=== PATIENT | female | born 2000 | race Caucasian/White ===

== ENCOUNTER 2021-08-18 21:16 | Emergency (ER) | payer BC, MEDICAID, SELFPAY ==
--- NOTE | ~2021-08-18 | US_ITS ---
EXAMINATION: OBSTETRIC ULTRASOUND - FIRST TRIMESTER CLINICAL INFORMATION: Lower pelvic pain. COMPARISON: None TECHNIQUE: Transabdominal imaging of the uterus was performed utilizing gurrola scale and color doppler technique, with m-mode imaging. FINDINGS: Single live intrauterine fetus with cardiac activity detected at 181bpm. [place]-rump length 4.43 cm corresponding to gestational age of 11 weeks, 2 days. movement is present. Amniotic fluid within normal limits, with chorioamnionic separation evident, normal at this stage of . Posterior placenta. There is a 2.3 x 1.7 x 1.1 cm avascular hypodensity within the inferior placenta suggestive of a placental mcginnis. No perigestational hemorrhage. Cervix is closed. Ovaries are normal. Trace pelvic free fluid is within normal limits. US/US OB limited IMPRESSION: * Single live intrauterine fetus with estimated gestational age by ultrasound of 11 weeks, 2 days, for an estimated date of delivery 03/08/2022. * There is a 2.3 cm placental mcginnis within the inferior placenta. These are nonspecific, not necessarily of any clinical significance, however wasn't seen during the first trimester, they can be associated with increased placental thickness and/or placental insufficiency.
[2021-08-18 23:30] VITALS: PULSE 107; RESP 18; TEMP 38.1; O2SAT 99; BMI 37.8
[2021-08-19 02:26] VITALS: BP 112/68; PULSE 93; RESP 12; TEMP 37.3; O2SAT 100
--- NOTE | 2021-08-19 02:46 | ED.GENADULT ---
HPI - General Adult General Chief complaint: General Medical Stated complaint: Fever Time Seen by Provider: 08/19/21 02:31 Source: patient and other Mode of arrival: ambulatory History of Present Illness HPI narrative: 21-year-old female with history of asthma, currently at approximately 11 weeks and denies any vaginal bleeding but is having some lower pelvic/suprapubic discomfort but primarily concerned with ongoing nasal congestion and cough with fever over the past 2 weeks. She describes some nausea that she has attributed to her state. Related Data Previous Rx's Medication Instructions Recorded ondansetron 4 mg disintegrating 4 mg PO Q6H PRN #10 tab 08/19/21 tablet Allergies Allergy/AdvReac Type Severity Reaction Status Date / Time No Known Allergies Allergy Verified 08/19/21 02:32 Review of Systems Review of Systems: Pertinent positives and negatives as stated in HPI and 10 point review of systems is otherwise negative. PMFSH Past Medical History Source: nursing notes reviewed Social History Social History Advance Directives: No Patient : Yes Physical Exam ED Vital Signs: Vital Signs - 24 hr 08/18/21 23:30 08/19/21 02:26 08/19/21 04:07 Temperature 100.5 F H 99.1 F 98.9 F Pulse Rate 107 H 93 91 Respiratory Rate 18 12 12 Blood Pressure 112/68 109/64 Pulse Oximetry 99 100 100 BMI result Body Mass Index 37.8 VITAL SIGNS: Reviewed. GENERAL: Well developed, well nourished, in no acute distress. HEAD: Normocephalic/atraumatic EYES: PERRLA, EOMI EARS: Ext canals without abnormality, TMs non-bulging and non-erythematous NOSE: Bilateral congestion with boggy turbinates, tenderness to palpation over maxillary and frontal sinuses OROPHARYNX: no oral lesions noted, posterior pharynx clear and non-erythematous without noted tonsillar enlargement/erythema/exudates NECK: Supple, no adenopathy LUNGS: Normal breath sounds. No adventitious sounds or accessory muscle use. SpO2<99> CARDIOVASCULAR: Regular rate and rhythm without noted murmurs ABDOMEN: Soft, tenderness noted in the suprapubic area without rebound, non-distended with bowel sounds. MUSCULOSKELETAL: No tenderness, deformities, or effusions noted on gross inspection. EXTREMITIES: No cyanosis, clubbing or edema. SKIN: Inspection of the skin reveals no rashes NEUROLOGIC: Alert and oriented x 4. Strength and sensation to light touch were grossly intact x 4. Course Course Course Narrative: 21-year-old female with history and clinical presentation most consistent with likely bacterial sinusitis given the duration of patient's symptoms, but will rule out UTI and obtain ultrasound to ascertain IUP. No concern for gallbladder appendix etiologies. On review of all investigations patient is influenza positive and otherwise dehydrated, patient resuscitated with IV fluids and on re-evaluation states feeling much better. Ob ultrasound shows IUP. Patient discharged home in stable condition Medical Decision Making Lab Data Result diagrams: 08/19/21 03:19 08/19/21 03:19 Labs: Lab Results 08/19/21 08/19/21 08/19/21 Range/Units 02:52 02:52 02:52 WBC (4.8-10.8) X10*3/uL RBC (4.20-5.50) X10*6/uL Hgb (12.0-16.0) g/dl Hct (37.0-47.0) % MCV (80.0-98.0) fL MCH (27.0-33.0) pg MCHC (31.0-35.0) g/dl RDW (11.0-16.0) % Plt Count (160-400) X10*3/uL MPV (9.4-12.3) fL Immature Gran % (Auto) (0.0-0.4) % Neut % (Auto) (45-73) % Lymph % (Auto) (20-40) % Price % (Auto) (2-11) % Eos % (Auto) (0-4) % Baso % (Auto) (0-2) % Lymph # (Auto) (1.2-4.9) X10*3/uL Price # (Auto) (0.1-1.2) X10*3/uL Eos # (Auto) (0.0-0.4) X10*3/uL Baso # (Auto) (0.0-0.2) X10*3/uL Abs Immat Gran (auto) (0.00-0.03) X10*3/uL Absolute Neuts (auto) (2.0-8.3) x10*3/uL Absolute Nucleated RBC (0.0-0.012) X10*3/uL Nucleated RBC % (auto) (0.0-0.2) /100WBC Sodium (135-145) mmol/L Potassium (3.3-5.1) mmol/L Chloride (96-108) mmol/L Carbon Dioxide (22-29) mmol/L Anion Gap (12-20) BUN (9-16) mg/dL Creatinine (0.5-1.4) mg/dL Estim Creat Clear Calc Estimated GFR Random Glucose (60-115) mg/dL Calcium (8.4-10.2) mg/dL Total Bilirubin (0.0-1.0) mg/dL AST (5-31) U/L ALT (0-31) U/L Alkaline Phosphatase (39-117) U/L Total Protein (6.5-8.0) g/dL Albumin (3.5-5.0) g/dL Beta HCG, Quant mIU/mL Urine Color YELLOW Urine Appearance CLEAR Urine pH 6.0 (5.0-8.0) Ur Specific [place] 1.015 (1.005-1.025) Urine Protein NEG (NEG-TRACE) MG/DL Urine Glucose (UA) NEG (NEG) MG/DL Urine Ketones 40 (NEG) MG/DL Urine Blood NEG (NEG) Urine Nitrite NEG (NEG) Ur Leukocyte Esterase NEG (NEG) Urine Test POSITIVE H (NEGATIVE) Influenza Type A (PCR) POSITIVE A (Negative) Influenza Type B (PCR) NEGATIVE (Negative) RSV RNA Qual (PCR) NEGATIVE (Negative) SARS-CoV-2 RNA (RT-PCR) NEGATIVE (Negative) 08/19/21 08/19/21 Range/Units 03:19 03:19 WBC 5.4 (4.8-10.8) X10*3/uL RBC 3.81 L (4.20-5.50) X10*6/uL Hgb 11.0 L (12.0-16.0) g/dl Hct 32.5 L (37.0-47.0) % MCV 85.3 (80.0-98.0) fL MCH 28.9 (27.0-33.0) pg MCHC 33.8 (31.0-35.0) g/dl RDW 12.4 (11.0-16.0) % Plt Count 161 (160-400) X10*3/uL MPV 11.0 (9.4-12.3) fL Immature Gran % (Auto) 0.2 (0.0-0.4) % Neut % (Auto) 61.8 (45-73) % Lymph % (Auto) 25.9 (20-40) % Price % (Auto) 11.9 H (2-11) % Eos % (Auto) 0.0 (0-4) % Baso % (Auto) 0.2 (0-2) % Lymph # (Auto) 1.4 (1.2-4.9) X10*3/uL Price # (Auto) 0.6 (0.1-1.2) X10*3/uL Eos # (Auto) 0.0 (0.0-0.4) X10*3/uL Baso # (Auto) 0.0 (0.0-0.2) X10*3/uL Abs Immat Gran (auto) 0.01 (0.00-0.03) X10*3/uL Absolute Neuts (auto) 3.3 (2.0-8.3) x10*3/uL Absolute Nucleated RBC 0.000 (0.0-0.012) X10*3/uL Nucleated RBC % (auto) 0.0 (0.0-0.2) /100WBC Sodium 130 L (135-145) mmol/L Potassium 3.6 (3.3-5.1) mmol/L Chloride 102 (96-108) mmol/L Carbon Dioxide 20 L (22-29) mmol/L Anion Gap 12 (12-20) BUN 6 L (9-16) mg/dL Creatinine 0.63 (0.5-1.4) mg/dL Estim Creat Clear Calc 126.7 Estimated GFR > 60 Random Glucose 86 (60-115) mg/dL Calcium 9.0 (8.4-10.2) mg/dL Total Bilirubin 0.2 (0.0-1.0) mg/dL AST 62 H (5-31) U/L ALT 73 H (0-31) U/L Alkaline Phosphatase 43 (39-117) U/L Total Protein 5.9 L (6.5-8.0) g/dL Albumin 3.7 (3.5-5.0) g/dL Beta HCG, Quant 879017 mIU/mL Urine Color Urine Appearance Urine pH (5.0-8.0) Ur Specific [place] (1.005-1.025) Urine Protein (NEG-TRACE) MG/DL Urine Glucose (UA) (NEG) MG/DL Urine Ketones (NEG) MG/DL Urine Blood (NEG) Urine Nitrite (NEG) Ur Leukocyte Esterase (NEG) Urine Test (NEGATIVE) Influenza Type A (PCR) (Negative) Influenza Type B (PCR) (Negative) RSV RNA Qual (PCR) (Negative) SARS-CoV-2 RNA (RT-PCR) (Negative) Discharge Plan Discharge Clinical Impression: Influenza A H1N1 infection, Dehydration, Patient Disposition: Home, Self-Care Instructions: Dehydration (ED), Influenza (ED), at 11 to 14 Weeks (ED) Additional Instructions: 1. Increase fluid hydration, especially with water. Continue with your vitamins. You have been prescribed antinausea medications. 2. Be sure to rest, drink plenty of fluids, and use Tylenol for body aches and temperatures greater than 100.4. 3. Follow-up with your primary care provider Saturday. Return to the ER for worsening symptoms. Prescriptions: New ondansetron 4 mg tablet,disintegrating 4 mg PO Q6H PRN (Reason: nausea and vomiting) Qty: 10 0RF Referrals: Liz Lee, [facility], [employer], [employer]ICE-[facility] [Primary Care Provider] - 2 days
[2021-08-19 03:03] LABS: Appearance Urine CLEAR; Color Urine YELLOW; Glucose Urine UA NEG (NEG); Leukocyte Esterase Urine NEG (NEG); Nitrite Urine NEG (NEG); Specific Gravity - Urine 1.015 (1.005-1.025); Urine Blood NEG (NEG); Urine Ketones 40 MG/DL (NEG); Urine Protein NEG (NEG-TRACE)
[2021-08-19 03:04] LABS: UPreg QC Valid YES; Urine Pregnancy POSITIVE (NEGATIVE)
[2021-08-19] MEDS: 0.9 % Sodium Chloride 1,000 ML 999 ML IV (03:20)
[2021-08-19 03:25] LABS: MANUAL DIFF FLAG NO
[2021-08-19] MEDS: diphenhydrAMINE HCL 25 MG TABLET PO (03:26)
[2021-08-19 03:28] LABS: Basophils Percent Auto 0.2 % (0-2); Hematocrit 32.5 % (37.0-47.0); Imm Gran Abs Auto 0.01 X10*3/uL (0.00-0.03); Imm Gran Pct Auto 0.2 % (0.0-0.4); Lymphocytes Absolute Auto 1.4 X10*3/uL (1.2-4.9); Lymphocytes Percent Auto 25.9 % (20-40); Mean Corpuscular HGB Conc 33.8 g/dl (31.0-35.0); Mean Corpuscular Hemoglobin 28.9 pg (27.0-33.0); Mean Corpuscular Volume 85.3 fL (80.0-98.0); Monocytes Absolute Auto 0.6 X10*3/uL (0.1-1.2); Monocytes Percent Auto 11.9 % (2-11); Neutrophils Absolute Auto 3.3 x10*3/uL (2.0-8.3); Neutrophils Percent Auto 61.8 % (45-73); Platelet Count 161 X10*3/uL (160-400); Red Blood Count 3.81 X10*6/uL (4.20-5.50); Red Cell Distribution Width 12.4 % (11.0-16.0); White Blood Count 5.4 X10*3/uL (4.8-10.8)
[2021-08-19 03:35] LABS: Influenza A PCR POSITIVE (Negative); Influenza B PCR NEGATIVE (Negative); Resp Syncy Virus RNA Qual PCR NEGATIVE (Negative); SARS COV2 PCR INHOUSE NEGATIVE (Negative)
[2021-08-19 03:51] LABS: Alanine Aminotransferase 73 U/L (0-31); Albumin Level 3.7 g/dL (3.5-5.0); Alkaline Phosphatase 43 U/L (39-117); Anion Gap 12 (12-20); Aspartate Amino Transferase 62 U/L (5-31); Bilirubin Total 0.2 mg/dL (0.0-1.0); Blood Urea Nitrogen 6 mg/dL (9-16); Carbon Dioxide 20 mmol/L (22-29); Chloride 102 mmol/L (96-108); Creatinine Clr Calc Pharmacy 126.7; Estimated Glomerular Filt Rate > 60; Glucose Random 86 mg/dL (60-115); Potassium 3.6 mmol/L (3.3-5.1); Sodium 130 mmol/L (135-145); Total Protein 5.9 g/dL (6.5-8.0)
[2021-08-19 04:07] VITALS: BP 109/64; PULSE 91; RESP 12; TEMP 37.2; O2SAT 100
--- NOTE | 2021-08-19 05:22 | PC.NURSE ---
[facility] care [facility] She arrived for evaluation of upper respiratory symptoms - cough, scratchy throat, nasal congestion, fatigue. She is currently nad has no complaints related to the - no bleeding, no abdominal pain, no discharge. She has been resting quietly in her room with her boyfriend at the bedside. IV access and labs were obtained and IVF's have infused. The pt also went to U/S via stretcher and returned without incident. At this time she has been discharged. She verbalized an understanding of all DC orders and she ambulated out of the ED independently and with steady gait.
== END 2021-08-19 05:21 | disposition home or self-care (01) ==
PROVIDERS: Emergency Provider Student in an Organized Health Care Education/Training Program; PCP Registered Nurse
DX: O98.511 Other viral diseases complicating pregnancy, first trimester (principal); B33.8 Other specified viral diseases; J11.1 Influenza due to unidentified influenza virus with other respiratory manifestations; O26.891 Other specified pregnancy related conditions, first trimester; E86.0 Dehydration; R10.30 Lower abdominal pain, unspecified; R50.9 Fever, unspecified; Z3A.11 11 weeks gestation of pregnancy; Z20.822 Contact with and (suspected) exposure to COVID-19
CPT/HCPCS: 0241U; 36415; 76815; 80053; 81003; 81025; 84702; 85025; 96360; 99283; 99284; Q0163

== ENCOUNTER 2021-08-24 09:45 | Outpatient (REF) | payer BC, MEDICAID, SELFPAY ==
[2021-08-24 17:05] LABS: CT PCR NOT DETECTED (Not Detect.); NG PCR NOT DETECTED (Not Detect.)
[2021-08-25 10:58] LABS: BV Int Neg Control Negative (Negative); BV Int Pos Control Positive (Positive)
== END 2021-08-24 09:46 | disposition home or self-care (01) ==
LOC: HO.LAB 09:45
PROVIDERS: PCP Registered Nurse; Visit Provider Advanced Practice Midwife
DX: O26.891 Other specified pregnancy related conditions, first trimester (principal); N89.8 Other specified noninflammatory disorders of vagina
CPT/HCPCS: 81025; 87480; 87491; 87510; 87591; 87660

== ENCOUNTER 2021-09-08 14:21 | Outpatient (REF) | payer BC, MEDICAID, SELFPAY ==
[2021-09-09 12:09] LABS: CT PCR NOT DETECTED (Not Detect.); NG PCR NOT DETECTED (Not Detect.)
[2021-09-09 14:44] LABS: BV Int Neg Control Negative (Negative); BV Int Pos Control Positive (Positive)
== END 2021-09-08 14:22 | disposition home or self-care (01) ==
LOC: HO.LAB 14:21
PROVIDERS: PCP Registered Nurse; Visit Provider Advanced Practice Midwife
DX: O26.892 Other specified pregnancy related conditions, second trimester (principal); R10.9 Unspecified abdominal pain; Z20.2 Contact with and (suspected) exposure to infections with a predominantly sexual mode of transmission; Z3A.14 14 weeks gestation of pregnancy
CPT/HCPCS: 87086; 87147; 87480; 87491; 87510; 87591; 87660; 99212

== ENCOUNTER 2021-09-08 16:11 | Outpatient (REF) | payer BC, MEDICAID, SELFPAY ==
--- NOTE | ~2021-09-08 | US_ITS ---
EXAMINATION: US OBSTETRICAL FOLLOW UP WITH BIOPHYSICAL PROFILE CLINICAL INFORMATION: Supervision of normal first COMPARISON: Ultrasound OB 09-06 TECHNIQUE: Real time transabdominal imaging with color and M-mode Doppler. POSITION: Cephalic PLACENTA: Posterior. Previously visualized placental mcginnis is not seen at this time. AMNIOTIC FLUID INDEX: Adequate. Single live intrauterine fetus with a heart rate of 160 bpm. There is normal motion There are small anechoic cyst in the right ovary measuring 1.1 x 1.0 x 1.1 cm. The left ovary appears unremarkable. US/US OB follow up IMPRESSION: 1. Single intrauterine gestation in cephalic position with posterior placenta. 2 ÁNGEL: Adequate amniotic fluid seen. 3. Normal motion.
== END 2021-09-08 16:12 | disposition home or self-care (01) ==
LOC: HO.US 16:11
PROVIDERS: Visit Provider Advanced Practice Midwife
DX: O26.899 Other specified pregnancy related conditions, unspecified trimester (principal); R10.2 Pelvic and perineal pain
CPT/HCPCS: 76816

== ENCOUNTER → 2021-09-13 14:07 | Outpatient (BNVA) | payer BC, MEDICAID, SELFPAY | PROVIDERS: PCP Registered Nurse; Visit Provider Advanced Practice Midwife | DX: Z13.89 Encounter for screening for other disorder (principal) | CPT/HCPCS: 99212 ==

== ENCOUNTER 2021-09-23 08:43 | Outpatient (REF) | payer BC, MEDICAID, SELFPAY ==
[2021-09-23 10:42] LABS: Hematocrit 27.7 % (37.0-47.0); Hemoglobin 9.2 g/dl (12.0-16.0); Mean Corpuscular HGB Conc 33.2 g/dl (31.0-35.0); Mean Corpuscular Hemoglobin 29.1 pg (27.0-33.0); Mean Corpuscular Volume 87.7 fL (80.0-98.0); Mean Platelet Volume 11.3 fL (9.4-12.3); Platelet Count 210 X10*3/uL (160-400); Red Blood Count 3.16 X10*6/uL (4.20-5.50); Red Cell Distribution Width 14.1 % (11.0-16.0)
[2021-09-23 11:18] LABS: Glucose 1 Hour PP 50gm Dose 80 mg/dL (60-140)
[2021-09-23 11:48] LABS: Amphetamine Screen Urine Not Detected (Not Detect); Barbiturates, Urine Not Detected (Not Detect); Benzodiazepines Screen Urine Not Detected (Not Detect); Cannabinoid Screen Urine Not Detected (Not Detect); Cocaine Screen Urine Not Detected (Not Detect); Fentanyl, urine Not Detected (Not Detect); Opiate Screen Urine Not Detected (Not Detect); Phencyclidine Screen Urine Not Detected (Not Detect)
[2021-09-25 03:51] LABS: HBsAGNum1 0.37 S/CO (0.00-0.99); HIV AB/AG Nonreactive (Nonreactive); HIV Num 1 0.06 S/CO (0.00-0.99); Hepatitis B Surface Antigen Negative (Negative); ~HepC Num1 0.05 S/CO (0.00-0.79); ~Hepatitis C Antibody Nonreactive (Nonreactive)
[2021-09-25 06:04] LABS: Syphilis Screen Nonreactive (Nonreactive)
[2021-09-25 18:56] LABS: Rubella IgG Antibody <0.90 Index
[2021-09-25 22:22] LABS: Varicella IgG Antibody <135.00 index
== END 2021-09-23 08:44 | disposition home or self-care (01) ==
LOC: HO.LAB 08:43
PROVIDERS: PCP Registered Nurse; Visit Provider Advanced Practice Midwife
DX: Z34.90 Encounter for supervision of normal pregnancy, unspecified, unspecified trimester (principal); Z83.3 Family history of diabetes mellitus
CPT/HCPCS: 80307; 85027; 86762; 86780; 86787; 86803; 86850; 86900; 86901; 87340; 87389

== ENCOUNTER 2021-10-02 10:47 | Outpatient (REF) | payer BC, MEDICAID, SELFPAY ==
[2021-10-02 12:24] LABS: Appearance Urine CLEAR; Color Urine YELLOW; Glucose Urine UA NEG (NEG); Leukocyte Esterase Urine NEG (NEG); Nitrite Urine NEG (NEG); Specific Gravity - Urine 1.025 (1.005-1.025); Urine Blood NEG (NEG); Urine Ketones NEG (NEG); Urine Protein NEG (NEG-TRACE)
[2021-10-03 13:17] LABS: BV Int Neg Control Negative (Negative); BV Int Pos Control Positive (Positive)
== END 2021-10-02 10:48 | disposition home or self-care (01) ==
LOC: HO.LAB 10:47
PROVIDERS: Advanced Practice Midwife; PCP Registered Nurse; Visit Provider Advanced Practice Midwife
DX: R30.0 Dysuria (principal); B37.3 Candidiasis of vulva and vagina
CPT/HCPCS: 81003; 87480; 87510; 87660; 99212

== ENCOUNTER 2021-10-06 09:10 | Outpatient (REF) | payer BC, MEDICAID, SELFPAY ==
--- NOTE | ~2021-10-06 | US_ITS ---
EXAMINATION: US OBSTETRICAL CLINICAL INFORMATION: 21-year-old at 18.0 weeks of gestation Screening for anomaly COMPARISON: 09/08/2021 TECHNIQUE: Real-time transabdominal ultrasound was performed using C1-5 megahertz transducer. FINDINGS: A single, active, fetus is seen in vertex presentation. The placenta is posterior without previa, and the amniotic fluid volume is wnl. MEASUREMENTS: 1. Biparietal Diameter: 4.1 cm; 18.4 wks 2. Occipital Frontal Diameter: 5.1 cm 3. Head Circumference: 14.8 cm; 18.0 wks 4. Abdominal Circumference: 12.8 cm; 18.3 wks 5. Femur Length: 2.7 cm; 18.2 wks 6. Humerus Length: 2.6 cm; 18.2 wks 7. Tibia Length: 2.3 cm; 18.0 wks 8. Ulna Length: 2.4 cm; 18.5 wks 9. Lateral ventricle: 0.7 cm 10. Cerebellum: 1.73 cm; 18.2 wks 11. Cisterna Magna: 0.4 cm 12. Nuchal Fold: 3.3 mm 13. Heart Rate: 139 beats per minute Rt ovary: normal Lt ovary: Unable to visualize, normal adnexa Cervical length 3.7 cm on T/A. GESTATIONAL AGE: 1. Established GA: 18.0 wks 2. GA from [facility]: 18.3 wks ESTIMATED DATE OF DELIVERY: 1. Established NANDO: 03/09/2022 2. NANDO from [facility]: 03/06/2022 ANATOMY: The visualized anatomy includes but not limited to: 1. Cranium: Normal 2. Intracranial anatomy: cavum septum pellucidi, lateral ventricles, choroid plexus, cerebellum, posterior fossa, third and fourth ventricles. 3. face: orbits, lip/palate, profile, nasal bone 4. Heart: four-chamber view of the heart, ventricular septum, foramen ovale, pulmonary vein, left and right outflow tracts, three-vessel view, 3 vessel trachea view, aortic and ductal arches, situs.. 5. Diaphragm: Normal 6. Abdominal wall: Normal 7. Cord Insertion: Normal 8. Spine: Cervical, thoracic, lumbar, sacral. 9. Stomach: Normal size and shape 10. Right Kidney: Normal 11. Left Kidney: Normal 12. 3 vessel cord: Normal 13. Upper extremity: Open hands, fifth digit. 14. Lower extremity: Tibia, fibula, bilateral feet. 15. Bladder: Normal 16. Genitalia: Female, patient not aware US/US OB /maternal detail IMPRESSION: 1. Single, living, intrauterine with appropriate biometry. 2. Normal survey DISCUSSION: I reviewed today's ultrasound findings. We discussed the limitations of ultrasound in diagnosing aneuploidy and other congenital abnormalities. I reviewed the differences between screening test and diagnostic test. Amniocentesis was discussed and declined. She was informed that the baseline incidence of congenital abnormalities is approximately 3-5%. Not all these conditions are diagnosable in utero. RECOMMENDATIONS: Follow-up when necessary. Thank you for allowing me to participate in her care. Total time 20 minutes. The time spent was devoted to counseling the patient about the disease and diagnosis, coordinating care including reviewing her records, pertinent lab data and studies, as well as discussing diagnostic evaluation and workup, plan therapeutic interventions and future disposition of care. This includes any additional research needed to obtain further information in formulating the plan of care of this patient. This note was generated with a voice recognition program. Please excuse any errors which may have been overlooked during my review of this note. Sometimes these errors may affect the content or meaning of a given sentence.
== END 2021-10-06 09:11 | disposition home or self-care (01) ==
LOC: HO.US 09:10
PROVIDERS: Visit Provider Advanced Practice Midwife
DX: Z34.92 Encounter for supervision of normal pregnancy, unspecified, second trimester (principal); Z3A.18 18 weeks gestation of pregnancy
CPT/HCPCS: 76811; 99212

== ENCOUNTER → 2021-11-06 09:05 | Outpatient (BNVA) | payer BC, MEDICAID, SELFPAY | PROVIDERS: PCP Registered Nurse; Visit Provider Advanced Practice Midwife | DX: O99.012 Anemia complicating pregnancy, second trimester (principal); Z3A.22 22 weeks gestation of pregnancy | CPT/HCPCS: 99212 ==

== ENCOUNTER → 2021-12-04 09:04 | Outpatient (BNVA) | payer BC, MEDICAID, SELFPAY | PROVIDERS: PCP Registered Nurse; Visit Provider Advanced Practice Midwife | DX: O99.012 Anemia complicating pregnancy, second trimester (principal); D64.9 Anemia, unspecified; Z3A.26 26 weeks gestation of pregnancy | CPT/HCPCS: 81003; 99212 ==

== ENCOUNTER 2021-12-12 07:46 | Outpatient (REF) | payer BC, MEDICAID, SELFPAY | END 2021-12-12 07:47 | disposition home or self-care (01) | LOC: HO.LAB 07:46 | PROVIDERS: PCP Registered Nurse; Visit Provider Advanced Practice Midwife | DX: Z34.92 Encounter for supervision of normal pregnancy, unspecified, second trimester (principal) | CPT/HCPCS: 87086 ==

== ENCOUNTER 2021-12-16 09:19 | Outpatient (REF) | payer BC, MEDICAID, SELFPAY ==
[2021-12-16 11:14] LABS: Hematocrit 35.1 % (37.0-47.0); Hemoglobin 11.4 g/dl (12.0-16.0); Mean Corpuscular HGB Conc 32.5 g/dl (31.0-35.0); Mean Corpuscular Hemoglobin 29.9 pg (27.0-33.0); Mean Corpuscular Volume 92.1 fL (80.0-98.0); Mean Platelet Volume 11.9 fL (9.4-12.3); Platelet Count 156 X10*3/uL (160-400); Red Blood Count 3.81 X10*6/uL (4.20-5.50); Red Cell Distribution Width 13.1 % (11.0-16.0); White Blood Count 8.8 X10*3/uL (4.8-10.8)
[2021-12-16 11:45] LABS: Glucose 1 Hour PP 50gm Dose 96 mg/dL (60-140)
[2021-12-18 06:10] LABS: Syphilis Screen Nonreactive (Nonreactive)
== END 2021-12-16 09:20 | disposition home or self-care (01) ==
LOC: HO.LAB 09:19
PROVIDERS: PCP Registered Nurse; Visit Provider Advanced Practice Midwife
DX: O99.019 Anemia complicating pregnancy, unspecified trimester (principal); D64.9 Anemia, unspecified
CPT/HCPCS: 36415; 85027; 86780

== ENCOUNTER → 2021-12-20 12:48 | Outpatient (BNVA) | payer BC, MEDICAID, SELFPAY | PROVIDERS: PCP Registered Nurse; Visit Provider Obstetrics & Gynecology | DX: O99.113 Other diseases of the blood and blood-forming organs and certain disorders involving the immune mechanism complicating pregnancy, third trimester (principal); D69.6 Thrombocytopenia, unspecified; Z3A.28 28 weeks gestation of pregnancy | CPT/HCPCS: 99212 ==

== ENCOUNTER 2021-12-25 17:20 | Outpatient (REF) | payer BC, MEDICAID, SELFPAY ==
[2021-12-25 17:32] LABS: MANUAL DIFF FLAG NO
[2021-12-25 17:39] LABS: Basophils Percent Auto 0.4 % (0-2); Eosinophils Absolute Auto 0.1 X10*3/uL (0.0-0.4); Imm Gran Abs Auto 0.07 X10*3/uL (0.00-0.03); Imm Gran Pct Auto 0.7 % (0.0-0.4); Lymphocytes Percent Auto 21.4 % (20-40); Mean Corpuscular HGB Conc 33.3 g/dl (31.0-35.0); Mean Corpuscular Hemoglobin 30.2 pg (27.0-33.0); Mean Corpuscular Volume 90.7 fL (80.0-98.0); Mean Platelet Volume 11.7 fL (9.4-12.3); Monocytes Absolute Auto 0.8 X10*3/uL (0.1-1.2); Monocytes Percent Auto 8.2 % (2-11); Neutrophils Absolute Auto 6.5 x10*3/uL (2.0-8.3); Neutrophils Percent Auto 68.3 % (45-73); Platelet Count 154 X10*3/uL (160-400); Red Blood Count 3.97 X10*6/uL (4.20-5.50); Red Cell Distribution Width 12.8 % (11.0-16.0); White Blood Count 9.6 X10*3/uL (4.8-10.8)
[2021-12-25 17:56] LABS: Alanine Aminotransferase 10 U/L (0-31); Albumin Level 3.6 g/dL (3.5-5.0); Alkaline Phosphatase 123 U/L (39-117); Aspartate Amino Transferase 18 U/L (5-31); Bilirubin Direct < 0.2 mg/dL (0.0-0.5); Bilirubin Total 0.3 mg/dL (0.0-1.0); Estimated Glomerular Filt Rate > 60; Total Protein 6.3 g/dL (6.5-8.0)
== END 2021-12-25 17:21 | disposition home or self-care (01) ==
LOC: HO.LAB 17:20
PROVIDERS: PCP Registered Nurse; Visit Provider Obstetrics & Gynecology
DX: O99.119 Other diseases of the blood and blood-forming organs and certain disorders involving the immune mechanism complicating pregnancy, unspecified trimester (principal); D69.6 Thrombocytopenia, unspecified
CPT/HCPCS: 36415; 80076; 82565; 85025

== ENCOUNTER 2022-01-04 10:58 | Outpatient (REF) | payer BC, MEDICAID, SELFPAY ==
[2022-01-04 13:48] LABS: CT PCR NOT DETECTED (Not Detect.); NG PCR NOT DETECTED (Not Detect.)
[2022-01-05 09:19] LABS: BV Int Neg Control Negative (Negative); BV Int Pos Control Positive (Positive)
== END 2022-01-04 10:59 | disposition home or self-care (01) ==
LOC: HO.LAB 10:58
PROVIDERS: Visit Provider Advanced Practice Midwife
DX: O98.813 Other maternal infectious and parasitic diseases complicating pregnancy, third trimester (principal); B37.3 Candidiasis of vulva and vagina; Z3A.31 31 weeks gestation of pregnancy; Z83.3 Family history of diabetes mellitus
CPT/HCPCS: 87480; 87491; 87510; 87591; 87660; 99212

== ENCOUNTER 2022-01-12 08:25 | Outpatient (REF) | payer BC, MEDICAID, SELFPAY ==
[2022-01-12 09:04] LABS: Hematocrit 34.3 % (37.0-47.0); Hemoglobin 11.6 g/dl (12.0-16.0); Mean Corpuscular HGB Conc 33.8 g/dl (31.0-35.0); Mean Corpuscular Hemoglobin 30.2 pg (27.0-33.0); Mean Corpuscular Volume 89.3 fL (80.0-98.0); Mean Platelet Volume 11.9 fL (9.4-12.3); Platelet Count 141 X10*3/uL (160-400); Red Blood Count 3.84 X10*6/uL (4.20-5.50); Red Cell Distribution Width 12.8 % (11.0-16.0); White Blood Count 8.2 X10*3/uL (4.8-10.8)
== END 2022-01-12 08:26 | disposition home or self-care (01) ==
LOC: HO.LAB 08:25
PROVIDERS: Absent Provider Advanced Practice Midwife; PCP Registered Nurse; Visit Provider Obstetrics & Gynecology
DX: O26.893 Other specified pregnancy related conditions, third trimester (principal); D69.6 Thrombocytopenia, unspecified; Z67.91 Unspecified blood type, Rh negative; O99.113 Other diseases of the blood and blood-forming organs and certain disorders involving the immune mechanism complicating pregnancy, third trimester
CPT/HCPCS: 36415; 85027; 86850

== ENCOUNTER → 2022-01-18 11:46 | Outpatient (BNVA) | payer BC, MEDICAID, SELFPAY | PROVIDERS: PCP Registered Nurse; Visit Provider Advanced Practice Midwife | DX: Z34.93 Encounter for supervision of normal pregnancy, unspecified, third trimester (principal); Z23 Encounter for immunization; Z3A.33 33 weeks gestation of pregnancy | CPT/HCPCS: 90471; 90715; 99212 ==

== ENCOUNTER 2022-01-29 16:21 | Outpatient (REF) | payer BC, MEDICAID, SELFPAY ==
[2022-01-30 13:21] LABS: BV Int Neg Control Negative (Negative); BV Int Pos Control Positive (Positive)
== END 2022-01-29 16:22 | disposition home or self-care (01) ==
LOC: HO.LNP 16:21
PROVIDERS: Visit Provider Advanced Practice Midwife
DX: Z34.93 Encounter for supervision of normal pregnancy, unspecified, third trimester (principal); Z3A.34 34 weeks gestation of pregnancy
CPT/HCPCS: 87480; 87510; 87660; 99212

== ENCOUNTER 2022-07-16 16:17 | Emergency (ER) | payer BC, MEDICAID, SELFPAY ==
--- NOTE | 2022-07-16 16:26 | ED_ITS ---
HPI - Psych General Chief Complaint: ETOH/Substance Use Stated Complaint: crisis etoh Time Seen by Provider: 07/16/22 16:18 Source: patient and EMS Mode of arrival: EMS Limitations: other (patient intoxicated ) History of Present Illness HPI Narrative: This is a 22-year-old female presenting to the emergency department on a Section 12 with EMS and police, patient was found next to a local bridge, stating she was going to jump off the bridge. When I asked her why she tells me she is tired. 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 Today she tells me she had an entire sleeve of nips. Patient tried to show up to child's daycare intoxicated to pick child up. She tells me she is really struggling. Nothing like this has ever happened to her before. Last drink just prior to arrival. She tells me ?im fucked up?. Denies any illicit drug use. Denies homicidal ideation however does endorse suicidal ideation with plan to jump off bridge. Child is currently with patient's mother. Denies medical complaints. She is prescribed antidepressants however not taking. Related Data Allergies Allergy/AdvReac Type Severity Reaction Status Date / Time No Known Allergies Allergy Verified 01/29/22 15:51 Review of Systems Review of Systems: Constitutional : No Weight loss, No Fever, No Chills, No Fatigue, No Malaise ENT/Mouth : No sore throat, No Rhinorrhea Eyes: No Eye Pain, No Swelling, No Redness Cardiovascular : No Chest Pain, No SOB, No Dyspnea on Exertion, No Orthopnea, No Edema, No Palpitations Respiratory : No Cough, No Sputum, No Wheezing Gastrointestinal : No Nausea, No Vomiting, No Diarrhea, No Constipation, No abdominal Pain, No Hematochezia, No Melena Genitourinary : No Dysuria, No Urinary Frequency, No Hematuria, Musculoskeletal : No joint pain, No Myalgias, No Joint Swelling Skin : No Skin Lesions, No rash Neuro : No Weakness, No Numbness, No Dizziness, No Headache Psych : No Anxiety/Panic, No Depression Heme/Lymph: No Bruising, No Bleeding,No Lymphadenopathy Endocrine : No Polyuria, No Polydipsia All other systems reviewed and are negative Yes all other systems are reviewed and are negative [facility] Past Medical History Attestation statement: The following information was validated with the patient. Source: old records reviewed and nursing notes reviewed Medical History Acid reflux Asthma Family History Family History Maternal Grandmother Diabetes Father HTN (hypertension) Mother Anemia H/O blood clots Maternal Grandfather Cancer determined by biopsy of stomach Paternal Grandfather Throat cancer Social History Social History Household Members: Family Housing: Apartment Are you a primary technical healthcare consultant to a significant other at home: No Do you presently have visiting nurse or other home services: No Alcohol intake: former Patient Tobacco Use Status: Never used Tobacco Substance Use Type: Marijuana Agree to transfusion: Yes Advance Directives: No Advance Directives Information Provided: No service: No Current occupational status: employed 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 Oriented X3.? No acute distress.? Patient smells like alcohol. Tearful. Head: Normocephalic, atraumatic, no step-offs or deformities Eyes: Pupils equal, round and reactive to light.? Bilateral conjunctivae injected. ENT: Pharynx normal.? Neck: Normal inspection.? Neck supple.? CVS: Normal heart rate and rhythm.? Pulses normal.? Respiratory: No respiratory distress.? Breath sounds normal.? Abdomen: Soft and nontender.? Skin: Skin warm and dry.? Normal skin color.? Normal skin turgor.? Extremities: No lower extremity edema.? No calf ttp. 5/5 strength to bilateral upper and lower extremities Neuro: Oriented X 3.? No motor deficit.? No sensory deficit. CN 2-12 intact Course Reevaluation(s) Reevaluation #1: CBC appears to be around patient's baseline however slightly hemoconcentrated when compared to patients baseline likely secondary to poor p.o. intake, dehydration and or alcohol abuse. Chemistry with no acute electrolyte abnormalities requiring intervention. Transaminases slightly elevated likely secondary to alcohol use. UA clean without infection. Urine toxicology negative. Ethanol level 273. At this time patient will be placed into observation to allow more time to be evaluated by the behavioral health team. At time observation was started patient common cooperative no acute distress will continue to monitor. She is on a Section 12 at this time. Time: 18:54 Medical Decision Making Medical Decision Making [facility] Narrative: 1626 22-year-old female presents with depression, suicidal ideation with plan. Tried to act on plan earlier today. Arrives on a Section 12 from police. Physical examination patient is eyes bloodshot bilaterally. Patient tearful. Bizarre affect. History and physical examination concerning for depression or psychosis. Unlikely bipolar schizophrenia. Also concern for acute alcohol intoxication. Will rule out polysubstance abuse. Plan at this time medical clearance evaluation by the behavioral health team. Police will file a 51 a. Differential Diagnosis Differential Diagnoses: The differential diagnosis associated with the presentation includes History and physical examination concerning for depression or psychosis. Unlikely bipolar schizophrenia. Also concern for acute alcohol intoxication. Will rule out polysubstance abuse. Admission/Observation Consideration of admission/observation: Escalation of care including admission/observation considered Consult Healthcare Provider Management of the patient was discussed with: Behavioral Health Provider Lab Data [facility] Lab Attestation statement: I reviewed the patient's lab results. 07/16/22 18:19 07/16/22 18:15 Labs: Lab Results 07/16/22 07/16/22 07/16/22 Range/Units 17:07 17:07 17:07 WBC (4.8-10.8) X10*3/uL RBC (4.20-5.50) X10*6/uL Hgb (12.0-16.0) g/dl Hct (37.0-47.0) % MCV (80.0-98.0) fL MCH (27.0-33.0) pg MCHC (31.0-35.0) g/dl RDW (11.0-16.0) % Plt Count (160-400) X10*3/uL MPV (9.4-12.3) fL Immature Gran % (Auto) (0.0-0.4) % Neut % (Auto) (45-73) % Lymph % (Auto) (20-40) % [place] % (Auto) (2-11) % Eos % (Auto) (0-4) % Baso % (Auto) (0-2) % Lymph # (Auto) (1.2-4.9) X10*3/uL [place] # (Auto) (0.1-1.2) X10*3/uL Eos # (Auto) (0.0-0.4) X10*3/uL Baso # (Auto) (0.0-0.2) X10*3/uL Abs Immat Gran (auto) (0.00-0.03) X10*3/uL Absolute Neuts (auto) (2.0-8.3) x10*3/uL Absolute Nucleated RBC (0.0-0.012) X10*3/uL Nucleated RBC % (auto) (0.0-0.2) /100WBC Sodium (135-145) mmol/L Potassium (3.3-5.1) mmol/L Chloride (96-108) mmol/L Carbon Dioxide (22-29) mmol/L Anion Gap (12-20) BUN (9-16) mg/dL Creatinine (0.5-1.4) mg/dL Estim Creat Clear Calc Estimated GFR Random Glucose (60-115) mg/dL Calcium (8.4-10.2) mg/dL Total Bilirubin (0.0-1.0) mg/dL AST (5-31) U/L ALT (0-31) U/L Alkaline Phosphatase (39-117) U/L Total Protein (6.5-8.0) g/dL Albumin (3.5-5.0) g/dL Urine Color Yellow Urine Appearance Clear Urine pH 6.5 (5.0-9.0) Ur Specific [place] 1.010 (1.005-1.025) Urine Protein 30 (1+) H (Neg-Trace) mg/dL Urine Glucose (UA) Negative (Negative) mg/dL Urine Ketones Negative (Negative) mg/dL Urine Blood Trace H (Negative) Urine Nitrite Negative (Negative) Ur Leukocyte Esterase Trace H (Negative) Urine RBC 0-2 (0-2) /HPF Urine WBC 0-5 (0-5) /HPF Ur Squamous Epith Cells 0-2 (0-2) /HPF Urine Bacteria None Seen (None Seen) Hyaline Casts 0-2 (0-2) /LPF Urine Opiates Screen Not Detected (Not Detect) Urine Fentanyl Screen Not Detected (Not Detect) Ur Barbiturates Screen Not Detected (Not Detect) Ur Phencyclidine Scrn Not Detected (Not Detect) Ur Amphetamines Screen Not Detected (Not Detect) U Benzodiazepines Scrn Not Detected (Not Detect) Urine Cocaine Screen Not Detected (Not Detect) U Marijuana (THC) Screen Not Detected (Not Detect) Ethyl Alcohol mg/dL COVID-19 ([facility]AM) Negative (Negative) COVID-19 Clin Com See Note 07/16/22 07/16/22 07/16/22 Range/Units 18:15 18:15 18:19 WBC 7.0 (4.8-10.8) X10*3/uL RBC 5.01 D (4.20-5.50) X10*6/uL Hgb 13.8 (12.0-16.0) g/dl Hct 41.6 D (37.0-47.0) % MCV 83.0 (80.0-98.0) fL MCH 27.5 (27.0-33.0) pg MCHC 33.2 (31.0-35.0) g/dl RDW 15.3 (11.0-16.0) % Plt Count 324 D (160-400) X10*3/uL MPV 10.4 (9.4-12.3) fL Immature Gran % (Auto) 0.3 (0.0-0.4) % Neut % (Auto) 77.1 H (45-73) % Lymph % (Auto) 16.9 L (20-40) % [place] % (Auto) 5.0 (2-11) % Eos % (Auto) 0.0 (0-4) % Baso % (Auto) 0.7 (0-2) % Lymph # (Auto) 1.2 (1.2-4.9) X10*3/uL [place] # (Auto) 0.4 (0.1-1.2) X10*3/uL Eos # (Auto) 0.0 (0.0-0.4) X10*3/uL Baso # (Auto) 0.1 (0.0-0.2) X10*3/uL Abs Immat Gran (auto) 0.02 (0.00-0.03) X10*3/uL Absolute Neuts (auto) 5.4 (2.0-8.3) x10*3/uL Absolute Nucleated RBC 0.000 (0.0-0.012) X10*3/uL Nucleated RBC % (auto) 0.0 (0.0-0.2) /100WBC Sodium 145 (135-145) mmol/L Potassium 4.0 (3.3-5.1) mmol/L Chloride 109 H (96-108) mmol/L Carbon Dioxide 23 (22-29) mmol/L Anion Gap 17 (12-20) BUN 9 (9-16) mg/dL Creatinine 0.87 (0.5-1.4) mg/dL Estim Creat Clear Calc 79.5 Estimated GFR > 60 Random Glucose 92 (60-115) mg/dL Calcium 9.1 (8.4-10.2) mg/dL Total Bilirubin 0.4 (0.0-1.0) mg/dL AST 49 H (5-31) U/L ALT 33 H (0-31) U/L Alkaline Phosphatase 122 H (39-117) U/L Total Protein 7.7 (6.5-8.0) g/dL Albumin 4.7 (3.5-5.0) g/dL Urine Color Urine Appearance Urine pH (5.0-9.0) Ur Specific [place] (1.005-1.025) Urine Protein (Neg-Trace) mg/dL Urine Glucose (UA) (Negative) mg/dL Urine Ketones (Negative) mg/dL Urine Blood (Negative) Urine Nitrite (Negative) Ur Leukocyte Esterase (Negative) Urine RBC (0-2) /HPF Urine WBC (0-5) /HPF Ur Squamous Epith Cells (0-2) /HPF Urine Bacteria (None Seen) Hyaline Casts (0-2) /LPF Urine Opiates Screen (Not Detect) Urine Fentanyl Screen (Not Detect) Ur Barbiturates Screen (Not Detect) Ur Phencyclidine Scrn (Not Detect) Ur Amphetamines Screen (Not Detect) U Benzodiazepines Scrn (Not Detect) Urine Cocaine Screen (Not Detect) U Marijuana (THC) Screen (Not Detect) Ethyl Alcohol 273 mg/dL COVID-19 ([facility]) (Negative) COVID-19 Clin Com Radiology Impression Discussion of test interpretation with radiology: I have reviewed the [facility] ologist's reading. External Record Review External record reviewed: Inpatient record, Office record, Outpatient record, Prior outpatient labs, Prior outpatient radiology, Primary care record and Outside ED record Core Measures AMI core measures followed: Yes Measure exclusions: not indicated Critical Care Time Critical Care Time Critical Care Time: No Discharge Plan Discharge Clinical Impression: psychosis Patient Disposition: Still a Patient Interventions: Mobile-Suicide Risk Severity Scale Last Done: 07/16/22 16:35
[2022-07-16 16:32] VITALS: BP 143/94; PULSE 120; RESP 16; TEMP 36.1; O2SAT 95; BMI 22.8
[2022-07-16 17:36] LABS: Amphetamine Screen Urine Not Detected (Not Detect); Barbiturates, Urine Not Detected (Not Detect); Benzodiazepines Screen Urine Not Detected (Not Detect); Cannabinoid Screen Urine Not Detected (Not Detect); Cocaine Screen Urine Not Detected (Not Detect); Fentanyl, urine Not Detected (Not Detect); Opiate Screen Urine Not Detected (Not Detect); Phencyclidine Screen Urine Not Detected (Not Detect)
[2022-07-16 17:39] LABS: Appearance Urine Clear; Color Urine Yellow; Glucose Urine UA Negative (Negative); Leukocyte Esterase Urine Trace (Negative); Nitrite Urine Negative (Negative); PH 6.5 (5.0-9.0); UMIC TRIGGER UACC YES; Urine Blood Trace (Negative); Urine Ketones Negative (Negative); Urine Protein 30 (1+) mg/dL (Neg-Trace)
[2022-07-16 17:40] LABS: COVID-19 Test Negative (Negative); IDNOW Serial# 16C4AD1C
[2022-07-16 18:24] LABS: MANUAL DIFF FLAG NO
[2022-07-16 18:27] LABS: Bacteria Urine None Seen (None Seen); Hyaline Casts Urine 0-2 /LPF (0-2); RBC Urine 0-2 /HPF (0-2); Squamous Epithelial Cell Urine 0-2 /HPF (0-2); WBC Urine 0-5 /HPF (0-5)
[2022-07-16 18:29] LABS: Basophils Absolute Auto 0.1 X10*3/uL (0.0-0.2); Basophils Percent Auto 0.7 % (0-2); Hematocrit 41.6 % (37.0-47.0); Hemoglobin 13.8 g/dl (12.0-16.0); Imm Gran Abs Auto 0.02 X10*3/uL (0.00-0.03); Imm Gran Pct Auto 0.3 % (0.0-0.4); Lymphocytes Absolute Auto 1.2 X10*3/uL (1.2-4.9); Lymphocytes Percent Auto 16.9 % (20-40); Mean Corpuscular HGB Conc 33.2 g/dl (31.0-35.0); Mean Corpuscular Hemoglobin 27.5 pg (27.0-33.0); Mean Platelet Volume 10.4 fL (9.4-12.3); Monocytes Absolute Auto 0.4 X10*3/uL (0.1-1.2); Neutrophils Absolute Auto 5.4 x10*3/uL (2.0-8.3); Neutrophils Percent Auto 77.1 % (45-73); Platelet Count 324 X10*3/uL (160-400); Red Blood Count 5.01 X10*6/uL (4.20-5.50); Red Cell Distribution Width 15.3 % (11.0-16.0)
[2022-07-16 18:40] LABS: Ethanol 273 mg/dL
[2022-07-16 18:43] LABS: Alanine Aminotransferase 33 U/L (0-31); Albumin Level 4.7 g/dL (3.5-5.0); Alkaline Phosphatase 122 U/L (39-117); Anion Gap 17 (12-20); Aspartate Amino Transferase 49 U/L (5-31); Bilirubin Total 0.4 mg/dL (0.0-1.0); Blood Urea Nitrogen 9 mg/dL (9-16); Calcium 9.1 mg/dL (8.4-10.2); Carbon Dioxide 23 mmol/L (22-29); Chloride 109 mmol/L (96-108); Creatinine Clr Calc Pharmacy 79.5; Estimated Glomerular Filt Rate > 60; Glucose Random 92 mg/dL (60-115); Sodium 145 mmol/L (135-145); Total Protein 7.7 g/dL (6.5-8.0)
[2022-07-16 18:55] LABS: Acetaminophen LAB < 17 mcg/mL (<30); Salicylate < 5.0 mg/dL (15-30)
--- NOTE | 2022-07-16 20:12 | MHC.RECOVSUP ---
Reason for consult: Recovery Support o Current location: [facility] o Identified substance use concern: ALCOHOL <del>-</del> <del>Overdose</del> <del>-</del> <del>Withdrawal</del> <del>-</del> <del>Seeking</del> <del>ATS</del> <del>(detox)</del> <del>-</del> <del>Support</del> <del>?</del> <del>Intervention:</del> <del>o</del> <del>ATS</del> <del>bed</del> <del>search</del> <del>started/completed/in</del> <del>process</del> <del>o</del> <del>MAT</del> <del>started</del> <del>or</del> <del>to</del> <del>be</del> <del>started</del> <del>o</del> <del>Community</del> <del>resources</del> <del>provided</del> <del>o</del> <del>Harm</del> <del>reduction</del> <del>discussion</del> <del>?</del> <del>Plan:</del> <del>o</del> <del>Referral</del> <del>to</del> <del>[facility]</del> <del>o</del> <del>Bed</del> <del>search</del> <del>in</del> <del>progress</del> <del>to</del> <del>o</del> <del>Follow</del> <del>up</del> <del>tomorrow</del> <del>o</del> <del>Patient</del> <del>awaiting</del> <del>crisis</del> <del>evaluation</del> <del>o</del> <del>Patient</del> <del>to</del> <del>follow</del> <del>up</del> <del>with</del> <del>[facility]</del> <del>after</del> <del>discharge</del> ? Additional information: I was able speak with the care team about pt and it was advised that I not speak with her until she was evaluated. I was not able to provide any service to pt
--- NOTE | 2022-07-16 20:16 | PHA.MEDREC ---
Pharmacy Consult ? Medication Reconciliation Pharmacy has completed the medication reconciliation. Pharmacy has reviewed med rec completed by Mk.
[2022-07-16] MEDS: Acetaminophen 325 MG TABLET 650 MG PO (23:19)
[2022-07-17] MEDS: LORazepam 1 MG TABLET PO (00:44)
[2022-07-17 00:45] VITALS: BP 134/80; PULSE 120; RESP 18; TEMP 36.4; O2SAT 98
--- NOTE | 2022-07-17 02:04 | PC.NURSE ---
Patient is in bed appears sleeping, CIWA @ 2200 was 7, patient reported MATIAS 5/10, Tylenol 650 mg administered at 2319 with little + effect, Ativan 1 mg po administered at 0044, care consult ordered/pending evaluation, monitoring for ETOH withdrawal, med rec completed/pending evaluation, will continue to monitor.
[2022-07-17 07:42] VITALS: BP 135/81; PULSE 109; RESP 18; TEMP 37.1; O2SAT 98
[2022-07-17] MEDS: Fluticasone Propionate 100 MCG BLST.W.DEV 2 PUFF INHALE (09:42)
[2022-07-17] MEDS: FLUoxetine HCl 10 MG CAPSULE PO (09:47)
--- NOTE | 2022-07-17 12:16 | PC.NURSE ---
Pt in NAD, denies suicidality and wd sxs at this time.
--- NOTE | 2022-07-17 12:35 | PC.NURSE ---
DCF AT BEDSIDE
--- NOTE | 2022-07-17 13:52 | MHC.CARE ---
Pt referred to CC and Recovery Team.
--- NOTE | 2022-07-17 14:09 | PC.NURSE ---
pt quiet, denies si. agreeable to plan for discharge and recommendations from care team and recovery team.
--- NOTE | 2022-07-17 14:10 | MHC.CARE ---
DCF contacted (Hardeep Copeland [phone]) and made aware pt will be discharging.
--- NOTE | 2022-07-17 14:20 | MHC.RECOVRN ---
Met with pt in [facility] prior to pt discharging to discuss alcohol use and provide resources and support. Pt sitting in bed, awake, alert, easily engages in conversation. Does not appear to be experiencing withdrawal. Pt reports drinking approx 10 nips vodka daily since March. Prior to that, pt reports a few drinks multiple times per week but not daily. Pt denies tx for AUD in the past. Pt reports feeling withdrawal if not drinking, including diaphoresis and tremors. Pt reports ability to abstain for up to 2 days at a time. Pt educated regarding alcohol withdrawal and risks associated, including seizures. Pt is not interested in ATS at this time. Discussed tapering use. Denies family hx. Pts goal is to reduce amount of alcohol used. Pt currently living with sister, plans to stay with mom and step-dad for the time being. Pt is in school for business administration. Pt states I walked out of my job yesterday. 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 Pt educated on recovery supports and resources, would like referral to recovery operator. T/w will send referral. Pt provided with written information, declines other referrals at this time. Pt also provided with t/w contact information if needed. CARE Team and RN aware.
== END 2022-07-17 14:16 | disposition home or self-care (01) ==
PROVIDERS: Physician Assistant; Student in an Organized Health Care Education/Training Program; Emergency Provider Emergency Medicine Emergency Medical Services
DX: O99.345 Other mental disorders complicating the puerperium (principal); F53.1 Puerperal psychosis; R45.851 Suicidal ideations; F32.A Depression, unspecified; F10.920 Alcohol use, unspecified with intoxication, uncomplicated; Y90.8 Blood alcohol level of 240 mg/100 ml or more; Z20.822 Contact with and (suspected) exposure to COVID-19; F12.90 Cannabis use, unspecified, uncomplicated; Z91.14 Patient's other noncompliance with medication regimen
CPT/HCPCS: 36415; 80053; 80143; 80179; 80307; 81001; 82077; 85025; 87635; 99285; S9485

== ENCOUNTER 2024-04-09 15:20 | Outpatient (AMB) | payer BC, MEDICAID, SELFPAY ==
[2024-04-09 15:25] VITALS: BP 102/86; BMI 15.4
--- NOTE | 2024-04-09 15:25 | MHC.PC.OV ---
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 Allergies No Known Allergies Allergy (Verified 04/09/24 15:47) Medication List - Last Reconciled 04/09/24 by Monique An PA-C albuterol sulfate 90 mcg/actuation 1 inh inhalation QID beclomethasone dipropionate 80 mcg/actuation (Qvar RediHaler) 2 puffs inhalation BID clonidine HCl 0.1 mg PO BEDTIME fluoxetine 1 cap PO DAILY lorazepam 1 tab PO BID PRN mirtazapine 7.5 mg PO BEDTIME Tobacco use date assessed: 04/09/24 Dental Screening Dental Screen Date: 04/09/24 Did you have a dental visit in the last 12 months?: Yes Did you have a dental problem in the last 6 months where you did not have access to dental care?: No Was dental information given to patient?: 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 Patient was previously seen by private practice in [facility]. She is on a multitude of different psych medications including fluoxetine, mirtazapine, clonidine and lorazepam. She has been using fluoxetine and mirtazapine as needed. Patient was referred to [facility] and is establishing with a counselor and psychiatrist. She does have a history of alcohol abuse and has been inpatient rehab in the past. She declines any a cough cravings at this time and states she is doing well. She does have history of asthma and uses QVAR inhaler daily and albuterol inhaler as needed. In the most recent weeks she has noticed an increase in using her albuterol inhaler but this is not typical for her. Denies any nighttime awakenings. [facility] Medical History Acid reflux Asthma Family History Maternal Grandmother Diabetes Father HTN (hypertension) Mother Anemia H/O blood clots Maternal Grandfather Cancer determined by biopsy of stomach Paternal Grandfather Throat cancer Social History Household Members: Family Both parents involved: Yes Caregiver staying overnight: No Housing: Apartment Are you a primary direct care staffer to a significant other at home: No Do you presently have visiting nurse or other home services: No 75 years or older and lives alone: No Alcohol intake: current Alcohol intake frequency: 3 or more drinks per day Patient Tobacco Use Status: Never used Tobacco e-Cigarette/Vaping Use: Currently Using Substance Use Type: Marijuana Agree to transfusion: Yes service: No Current occupational status: employed Sexual orientation: Straight/Heterosexual Gender identity: Female Cognitive needs: No Hearing needs: No Vision needs: Yes Female Reproductive History Menstrual Age of Menarche: 11 control method: progesterone injection Total pregnancies: 1 Full term: 1 Questionnaire PHQ-9 Over the last 2 weeks, how often have you been bothered by any of the following problems? 1. Little interest or pleasure in doing things: several days 2. Feeling down, depressed, or hopeless: several days 3. Trouble falling or staying asleep, or sleeping too much: several days 4. Feeling tired or having little energy: several days 5. Poor appetite or overeating: several days 6. Feeling bad about yourself - or that you are a failure or have let yourself or your family down: several days 7. Trouble concentrating on things, such as reading the newspaper or watching television: several days 8. Moving or speaking so slowly that other people could have noticed. Or the opposite - being so fidgety or restless that you have been moving around a lot more than usual: several days 9. Thoughts that you would be better off or of hurting yourself in some way: not at all Total score: 8 Depression Screening Interpretation: Positive Depression Screening Follow-up: Existing condition, In treatment and Change in Medication Depression Screening Done: Yes 21835 - PHQ-9 Billing: Yes Source: Developed by Drs. Rian Wright, Krissy Alcaraz, Salvador Duran and colleagues, with an educational lee from [employer]. Thrive Questionnaire Date Thrive assessed: 04/02/24 I am a: Patient What is your living situation today?: I have a steady place to live Within the past 12 months, did the food you bought not last and you didn't have the money to get more?: Sometimes True Within the past 12 months, did you worry whether your food would run out before you got money to buy more?: Sometimes True Do you have trouble paying for medicines?: No Do you have trouble getting transportation to medical appointments?: No Do you have trouble paying your heating and electricity bill?: Yes Do you have trouble taking care of your child, family member or friend?: No Do you have trouble with day-to-day activities such as bathing, preparing meals, shopping, managing finances, etc.?: No Are you currently unemployed and looking for a job?: No Are you interested in more education?: Yes Please select the resources that you would like help with: None Currently or been in a relationship where the following occur: No concerns reported THRIVE Score: 3 AUDIT C Alcohol Use Questionnaire (AUDIT-C) 1. How often do you have a drink containing alcohol?: Never 3. How often do you have six or more drinks on one occasion?: Never Total Score: 0 JESUS-7 AMB Questionnaire JESUS-7 Date JESUS - 7 assessed: 04/09/24 Feeling nervous, anxious, or on edge: 1 = Several days Not being able to stop or control worryin = Several days Worrying too much about different things: 1 = Several days Trouble relaxin = Several days Being so restless that it is hard to sit still: 1 = Several days Becoming easily annoyed or irritable: 1 = Several days Feeling afraid as if something awful might happen: 1 = Several days Total JESUS-7 score (0-4 normal; 5-9 mild; 10-14 moderate; 15-21 severe): 7 Source: Developed by Drs. Rian Wright, Krissy Alcaraz, Salvador Duran and colleagues, with an educational lee from [employer]. JESUS-7 Assessment Billing JESUS-7 Assessment Tool: JESUS-7 Assessment 62177 Review of Systems Const Denies body aches, Denies fatigue, Denies fever(s), Denies frequent falls, Reports headache(s) and Denies weakness Eyes Details: establishing with eye doctor Reports no additional complaints, Denies change in vision and Reports requires corrective lenses ENT Denies dysphagia, Denies dizziness, Denies facial pain, Reports headache(s), Denies nasal congestion and Denies odynophagia Card Denies chest pain, Denies syncope, Denies irregular heart rhythm, Denies leg edema, Denies lightheadedness and Denies dyspnea Resp Denies cough and Denies dyspnea GI Denies abdominal pain, Denies constipation, Denies dysphagia, Denies dyspepsia, Denies diarrhea, Denies nausea, Denies odynophagia and Denies vomiting Denies urinary frequency, Denies dysuria, Denies urinary hesitancy and Denies urinary urgency Musc Denies back pain and Denies myalgias Skin/Breast Reports system reviewed and no additional complaints, except as documented Neuro Denies dizziness, Denies syncope, Denies frequent falls, Reports headache(s) and Denies weakness Psych Reports no additional complaints Endo Denies fatigue Physical exam (Primary Care) Vital Signs: Oxygen Delivery Method Room Air 04/09/24 15:25 Tobacco/Smoking Status: Tobacco use Status Patient Tobacco Use Status Never used Tobacco 11/06/21 09:45 Depression Screening Interpretation: Positive Depression Screening Follow-up: Existing condition, In treatment and Change in Medication Thrive Assessment: Date of Thrive Assessment Date Thrive assessed 04/02/24 04/02/24 13:44 Currently or been in a relationship where the following occur: No concerns reported Const General: cooperative, healthy appearing, comfortable and no acute distress Orientation/consciousness: patient oriented x3 HENMT Head: Yes normocephalic Ears: hearing grossly normal bilaterally General nose exam: Normal external nose present Eyes General: appearance normal, both eyes and all related structures Conjunctivae: conjunctivae normal Neck Neck: Yes full ROM and Yes no lymphadenopathy Resp Effort & Inspection: normal respiratory effort Auscultation: clear to auscultation bilaterally, no crackles, no rales, no rhonchi and no wheezes Cardio Rate: regular rate Rhythm: regular rhythm Skin General skin exam: no rashes or lesions noted Neuro General: patient oriented x3 Gait exam (Neuro): Normal gait present Extrem General: Yes normal to inspection, Yes full ROM and No edema Psych Affect: normal affect Attitude: cooperative Insight: Good insight present (Psych) Judgement: Good judgement present (Psych) Coding Level of Care Code New Pt Level 4 (62703) Diagnoses Depression F32.A Anxiety associated with depression F41.8 Alcohol use disorder F10.90 Asthma J45.909 Insomnia G47.00 Cervical cancer screening Z12.4 Additional Codes JESUS-7 Assessment Billing - JESUS-7 Assessment Tool: JESUS-7 Assessment 99662 ([id number]) PHQ-9 - 74924 - PHQ-9 Billing: Yes ([id number]) Assessment & Plan Assessment & Plan (1) Depression: Code(s): F32.A - Depression, unspecified Category: Medical Plan: Patient is establishing with [facility]. In the meantime we will start Zoloft 25 mg. Advised patient to take this medication daily and do not skip doses. We will follow up in 3 months. (2) Anxiety associated with depression: Code(s): F41.8 - Other specified anxiety disorders Category: Medical Plan: Has previously been using clonidine, mirtazapine and lorazepam as needed. Advised patient to discontinue these medications at this time and use sertraline daily and follow up in 3 months. (3) Alcohol use disorder: Code(s): F10.90 - Alcohol use, unspecified, uncomplicated Category: Medical Plan: Declines referral to comprehensive Care [facility] at this time and states she is doing well with her cravings. Advised to follow up as needed. (4) Asthma: Code(s): J45.909 - Unspecified asthma, uncomplicated Category: Medical Plan: Asthma currently controlled on present medications. Continue on QVAR inhaler b.i.d. and albuterol as needed. Avoid triggers such as allergies. (5) Insomnia: Code(s): G47.00 - Insomnia, unspecified Category: Medical Plan: Advised patient to discontinue the mirtazapine as this gives her a ?hangover ?affect. May use clonidine as needed for bedtime. (6) Cervical cancer screening: Code(s): Z12.4 - Encounter for screening for malignant neoplasm of cervix Category: Medical Plan: Referral placed to gynecology for annual Pap smears. Plan Routine blood work ordered and we will follow up in 3 months for annual physical and follow up on medications and blood work. This note was constructed using voice recognition software. While every effort has been made to ensure accuracy and sales promotion officer, still areas may have been included sometimes these areas may affect the content or meeting of the given symptoms. Total time spent caring for the patient today was 30 minutes. This includes time spent before the visit reviewing the chart, time spent during the visit, and time spent after the visit and documentation. Orders: Orders Free T4 (Free Thyroxine) Today Z00.00 - Encounter for general adult medical examination without abnormal findings Vitamin B12 and Folate Today Z00.00 - Encounter for general adult medical examination without abnormal findings Vitamin D 25-OH (D2 and D3) Today Z00.00 - Encounter for general adult medical examination without abnormal findings UA CC w/rflx Micro + Cult Today R35.89 - Other polyuria Complete Blood Count Auto Diff Today Z00.00 - Encounter for general adult medical examination without abnormal findings Comprehensive Met. Panel Today Z00.00 - Encounter for general adult medical examination without abnormal findings TSH reflex Free T4 Today Z00.00 - Encounter for general adult medical examination without abnormal findings Referrals WRITING TUTOR Referral B96.89 - Other specified bacterial agents as the cause of diseases classified elsewhere, N76.0 - Acute vaginitis, Z12.4 - Encounter for screening for malignant neoplasm of cervix Optometry Referral Z00.00 - Encounter for general adult medical examination without abnormal findings Medications: New sertraline 25 mg PO DAILY 30 tabs 2RF albuterol sulfate 90 mcg/actuation 1 inh inhalation QID 6.7 grams 0RF Changed From beclomethasone dipropionate 80 mcg/actuation (Qvar RediHaler) 2 puffs inhalation BID To beclomethasone dipropionate 80 mcg/actuation (Qvar RediHaler) 2 inhalations inhalation BID 10.6 grams 0RF
== END 2024-04-09 16:13 | disposition home or self-care (01) ==
DX: F32.A Depression, unspecified (principal); F41.8 Other specified anxiety disorders; F10.90 Alcohol use, unspecified, uncomplicated; J45.909 Unspecified asthma, uncomplicated; G47.00 Insomnia, unspecified; Z12.4 Encounter for screening for malignant neoplasm of cervix

== ENCOUNTER → 2024-04-09 15:20 | Outpatient (BNVA) | payer BC, MEDICAID, SELFPAY | DX: F41.8 Other specified anxiety disorders (principal); F10.90 Alcohol use, unspecified, uncomplicated; J45.909 Unspecified asthma, uncomplicated; G47.00 Insomnia, unspecified; Z79.899 Other long term (current) drug therapy | CPT/HCPCS: 96127 ==

== ENCOUNTER 2024-06-26 15:32 | Outpatient (AMB) ==
[2024-06-26 15:35] VITALS: BP 102/74; PULSE 88; TEMP 36.2; O2SAT 100; BMI 15.7
--- NOTE | 2024-06-26 15:35 | MHC.PC.OV ---
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 Required: No Accompanied by: Self / Same As Patient Allergies No Known Allergies Allergy (Verified 06/26/24 15:52) Medication List - Last Reconciled 06/26/24 by Monique An PA-C beclomethasone dipropionate 80 mcg/actuation (Qvar RediHaler) 2 inhalations inhalation BID food supplemt, lactose-reduced (Ensure Complete) 1 ea PO TID levalbuterol tartrate 45 mcg/actuation 2 puffs inhalation Q4-6H PRN sertraline 25 mg PO DAILY Tobacco use date assessed: 06/26/24 Dental Screening Dental Screen Date: 06/26/24 Did you have a dental visit in the last 12 months?: Yes Did you have a dental problem in the last 6 months where you did not have access to dental care?: No Was dental information given to patient?: Patient has dentist HPI Annual Exam HPI Details 23-year-old female with past medical history of anxiety, depression, asthma, alcohol use disorder, insomnia last seen 03/2024 coming in for annual exam. Patient tells us today she is feeling generally well she feels the sertraline has been working well for her anxiety and depression and does not have a counselor at this time. She states she has been very busy with work and school and with her 2-year-old daughter as well. She has seen gynecology in July for her annual Pap smears. She was previously vaping and was having chest pain with vaping this resolved once discontinuation of vaping. [facility] Medical History Acid reflux Asthma Family History Maternal Grandmother Diabetes Father HTN (hypertension) Mother Anemia H/O blood clots Maternal Grandfather Cancer determined by biopsy of stomach Paternal Grandfather Throat cancer Social History Household Members: Family Both parents involved: Yes Caregiver staying overnight: No Housing: Apartment Are you a primary personal care aid to a significant other at home: No Do you presently have visiting nurse or other home services: No 75 years or older and lives alone: No Alcohol intake: current Alcohol intake frequency: 3 or more drinks per day Patient Tobacco Use Status: Never used Tobacco e-Cigarette/Vaping Use: Currently Using Substance Use Type: Marijuana Agree to transfusion: Yes service: No Current occupational status: employed Sexual orientation: Straight/Heterosexual Gender identity: Female Cognitive needs: No Hearing needs: No Vision needs: Yes Female Reproductive History Menstrual Age of Menarche: 11 Questionnaire PHQ-9 Over the last 2 weeks, how often have you been bothered by any of the following problems? 1. Little interest or pleasure in doing things: several days 2. Feeling down, depressed, or hopeless: several days 3. Trouble falling or staying asleep, or sleeping too much: several days 4. Feeling tired or having little energy: several days 5. Poor appetite or overeating: several days 6. Feeling bad about yourself - or that you are a failure or have let yourself or your family down: several days 7. Trouble concentrating on things, such as reading the newspaper or watching television: several days 8. Moving or speaking so slowly that other people could have noticed. Or the opposite - being so fidgety or restless that you have been moving around a lot more than usual: several days 9. Thoughts that you would be better off or of hurting yourself in some way: several days Total score: 9 Depression Screening Interpretation: Positive Depression Screening Follow-up: Existing condition and In treatment Depression Screening Done: Yes 37194 - PHQ-9 Billing: Yes Source: Developed by Drs. Rian Wright, Krissy Alcaraz, Salvador Duran and colleagues, with an educational lee from [employer]. Thrive Questionnaire Date Thrive assessed: 06/26/24 I am a: Patient What is your living situation today?: I have a steady place to live Within the past 12 months, did the food you bought not last and you didn't have the money to get more?: Never true Within the past 12 months, did you worry whether your food would run out before you got money to buy more?: Never true Do you have trouble paying for medicines?: No Do you have trouble getting transportation to medical appointments?: No Do you have trouble paying your heating and electricity bill?: Yes Do you have trouble taking care of your child, family member or friend?: No Do you have trouble with day-to-day activities such as bathing, preparing meals, shopping, managing finances, etc.?: No Are you currently unemployed and looking for a job?: No Are you interested in more education?: Yes Please select the resources that you would like help with: Food Currently or been in a relationship where the following occur: No concerns reported THRIVE Score: 1 AUDIT C Alcohol Use Questionnaire (AUDIT-C) 1. How often do you have a drink containing alcohol?: 2-4 times a month 2. How many drinks containing alcohol do you have on a typical day when you are drinking?: 5 or 6 3. How often do you have six or more drinks on one occasion?: Less than monthly Total Score: 5 JESUS-7 AMB Questionnaire JESUS-7 Date JESUS - 7 assessed: 06/26/24 Feeling nervous, anxious, or on edge: 1 = Several days Not being able to stop or control worryin = Several days Worrying too much about different things: 1 = Several days Trouble relaxin = Several days Being so restless that it is hard to sit still: 2 = More than half the days Becoming easily annoyed or irritable: 1 = Several days Feeling afraid as if something awful might happen: 1 = Several days Total JEUSS-7 score (0-4 normal; 5-9 mild; 10-14 moderate; 15-21 severe): 8 Source: Developed by Drs. Rian Wright, Krissy Alcaraz, Salvador Duran and colleagues, with an educational lee from [employer]. JESUS-7 Assessment Billing JESUS-7 Assessment Tool: JESUS-7 Assessment 95824 Review of Systems Const Denies body aches, Denies fatigue, Denies fever(s), Denies frequent falls, Denies headache(s) and Denies weakness Eyes Reports no additional complaints and Denies change in vision ENT Denies dysphagia, Denies dizziness, Denies facial pain, Denies headache(s), Denies nasal congestion and Denies odynophagia Card Denies chest pain, Denies syncope, Denies irregular heart rhythm, Denies leg edema, Denies lightheadedness and Denies dyspnea Resp Denies cough and Denies dyspnea GI Denies abdominal pain, Denies constipation, Denies dysphagia, Denies dyspepsia, Denies diarrhea, Denies nausea, Denies odynophagia and Denies vomiting Denies urinary frequency, Denies dysuria, Denies urinary hesitancy and Denies urinary urgency Musc Denies back pain and Denies myalgias Skin/Breast Reports system reviewed and no additional complaints, except as documented Neuro Denies dizziness, Denies syncope, Denies frequent falls, Denies headache(s) and Denies weakness Psych Reports no additional complaints Endo Denies fatigue Physical exam (Primary Care) Vital Signs: Last Vital Signs Temp 97.1 F 06/26/24 15:35 Pulse 88 06/26/24 15:35 BP 102/74 06/26/24 15:35 Pulse Ox 100 06/26/24 15:35 Oxygen Delivery Method Room Air 06/26/24 15:35 BMI result Body Mass Index 15.7 Tobacco/Smoking Status: Tobacco use Status Tobacco use date assessed 06/26/24 06/26/24 15:44 Patient Tobacco Use Status Never used Tobacco 06/26/24 15:36 e-Cigarette/Vaping Use Currently Using 06/26/24 15:36 PHQ-9: PHQ-9 Score PHQ-9: Total score 9 06/26/24 15:54 Depression Screening Interpretation: Positive Depression Screening Follow-up: Existing condition and In treatment Thrive Assessment: Date of Thrive Assessment Date Thrive assessed 06/26/24 06/26/24 15:36 Currently or been in a relationship where the following occur: No concerns reported Const General: cooperative, healthy appearing, comfortable and no acute distress Orientation/consciousness: patient oriented x3 HENMT Head: Yes normocephalic Ears: hearing grossly normal bilaterally, external ears normal, TM's normal bilaterally and EAC's normal General nose exam: Normal external nose present Face and sinus: Yes normal facial exam and Yes sinuses nontender Mouth: Normal oral and palatal mucosa present and tongue normal Throat: Yes posterior oropharynx normal Eyes General: appearance normal, both eyes and all related structures Conjunctivae: conjunctivae normal Pupils: Equal, round and reactive pupils present EOM: EOMs intact bilaterally and No Nystagmus present Neck Neck: Yes normal visual inspection, Yes full ROM and Yes no lymphadenopathy Chest Chest palpation & inspection: normal inspection of the chest Resp Effort & Inspection: normal respiratory effort Auscultation: clear to auscultation bilaterally, no crackles, no rales, no rhonchi, no wheezes and breath sounds present Cardio Rate: regular rate Rhythm: regular rhythm Peripheral pulses: radial pulses present and dorsalis pedis present GI Inspection: Yes normal to inspection and No Abdominal wall edema Palpation (GI): Soft to palpation, not firm and nontender Auscultation: normal bowel sounds Rectal Exam - Female: deferred General: Yes no CVA tenderness Back/Spine/Pelvis Back: no CVA tenderness Skin General skin exam: no rashes or lesions noted Neuro General: patient oriented x3 Cranial nerves: Yes Equal, round and reactive pupils present, Yes Midline tongue present, Yes Ability to bilaterally elevate shoulders present and No Nystagmus present Gait exam (Neuro): Normal gait present Extrem General: Yes normal to inspection, Yes full ROM, No no pedal edema and No edema Psych Speech and movement: Normal speech and movement present Affect: normal affect Insight: Good insight present (Psych) Judgement: Good judgement present (Psych) Coding Level of Care Code Est Pt Prev Care 18-39y(35557) Diagnoses Insomnia G47.00 Underweight R63.6 Annual physical exam Z00.00 Asthma J45.909 Alcohol use disorder F10.90 Depression F32.A Cervical cancer screening Z12.4 Acid reflux K21.9 Additional Codes JESUS-7 Assessment Billing - JESUS-7 Assessment Tool: JESUS-7 Assessment 09833 ([id number]) PHQ-9 - 98240 - PHQ-9 Billing: Yes ([id number]) Assessment & Plan Assessment & Plan (1) Insomnia: Code(s): G47.00 - Insomnia, unspecified Category: Medical Plan: No longer on any sleeping medications feels her sleeping is good at this time and does not need medication. (2) Underweight: Code(s): R63.6 - Underweight Category: Medical Plan: Advised patient to continue with boost foods supplement and well-balanced diet. (3) Annual physical exam: Code(s): Z00.00 - Encounter for general adult medical examination without abnormal findings Category: Medical Plan: Patient is up-to-date on all recommended routine screenings and vaccinations for her age. She is due for Pap smear and we will follow up with gynecology in July. Healthy diet and regular exercise is encouraged. Reminded patient about blood work. Plan to follow up 1 year for annual exam or sooner pending blood work or if new problems arise. (4) Asthma: Code(s): J45.909 - Unspecified asthma, uncomplicated Category: Medical Plan: Asthma currently controlled on present medications. Continue on QVAR twice daily and albuterol as needed. Avoid triggers such as allergies. Feels breathing is well managed (5) Alcohol use disorder: Code(s): F10.90 - Alcohol use, unspecified, uncomplicated Category: Medical Plan: occasional did have binge in the beginning of the year and not every weekend. Feels her alcohol use disorder is under good control and declines comprehensive Care Clinic or medication management at this time (6) Depression: Code(s): F32.A - Depression, unspecified Category: Medical Plan: Feels depression and anxiety is well managed on her sertraline 25 mg she would like to stay on this dose at this time. She was previously trying to establish with a counselor through [facility] but has not been able to get a hold of them. Recommending [facility] or [facility] if counseling services are desired. Please reach out to the office if you need additional assistance (7) Cervical cancer screening: Code(s): Z12.4 - Encounter for screening for malignant neoplasm of cervix Category: Medical (8) Acid reflux: Comment: In childhood. Used a g-tube from age [age] yrs. (no current problems 10/08.) Code(s): K21.9 - Gastro-esophageal reflux disease without esophagitis Category: Medical Plan: Avoid trigger foods such as citrus, tomato products, soda, caffeine, spicy foods and other foods that may be irritating to your stomach. Avoid laying flat 3-4 hours after eating and elevate the head of the bed 30 degrees to prevent acid from moving into the esophagus. Plan This note was constructed using voice recognition software. While every effort has been made to ensure accuracy and per diem physical therapist assistant, still areas may have been included sometimes these areas may affect the content or meeting of the given symptoms. Total time spent caring for the patient today was 30 minutes. This includes time spent before the visit reviewing the chart, time spent during the visit, and time spent after the visit and documentation. Orders: Orders CT NG by PCR Today Z00.00 - Encounter for general adult medical examination without abnormal findings Medications: New food supplemt, lactose-reduced (Boost High Protein) up to TID as meal additive 1 ea PO TID 2,844 mL 4RF R63.6 - Underweight
== END 2024-06-26 16:14 | disposition home or self-care (01) ==
DX: G47.00 Insomnia, unspecified (principal); R63.6 Underweight; Z00.00 Encounter for general adult medical examination without abnormal findings; J45.909 Unspecified asthma, uncomplicated; F10.90 Alcohol use, unspecified, uncomplicated; F32.A Depression, unspecified; Z12.4 Encounter for screening for malignant neoplasm of cervix; K21.9 Gastro-esophageal reflux disease without esophagitis

== ENCOUNTER → 2024-06-26 15:32 | Outpatient (BNVA) | payer BC, MEDICAID, SELFPAY | DX: Z00.00 Encounter for general adult medical examination without abnormal findings (principal); G47.00 Insomnia, unspecified; R63.6 Underweight; Z68.1 Body mass index [BMI] 19.9 or less, adult; J45.909 Unspecified asthma, uncomplicated; F10.90 Alcohol use, unspecified, uncomplicated; F32.A Depression, unspecified; K21.9 Gastro-esophageal reflux disease without esophagitis; Z79.899 Other long term (current) drug therapy | CPT/HCPCS: 96127 ==

== ENCOUNTER 2024-08-14 09:32 | Outpatient (AMB) | payer BC, MEDICAID, SELFPAY ==
[2024-08-14 09:35] VITALS: BP 88/60; PULSE 101; TEMP 36.2; O2SAT 97; BMI 15.9
--- NOTE | 2024-08-14 09:35 | MHC.PC.OV ---
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 She was admitted on 07/03 - 08/11 at [facility] for rehab due to Alcohol abuse disorder. Today asking for Referrals to Therapist and Psychiatrist. Will ask Community Navigator (Anjum) assist on this. [facility] Medical History Acid reflux Asthma Family History Maternal Grandmother Diabetes Father HTN (hypertension) Mother Anemia H/O blood clots Maternal Grandfather Cancer determined by biopsy of stomach Paternal Grandfather Throat cancer Social History Household Members: Family Both parents involved: Yes Caregiver staying overnight: No Housing: Apartment Are you a primary transitional care nurse to a significant other at home: No Do you presently have visiting nurse or other home services: No 75 years or older and lives alone: No Alcohol intake: current Alcohol intake frequency: 3 or more drinks per day Patient Tobacco Use Status: Never used Tobacco e-Cigarette/Vaping Use: Currently Using Substance Use Type: Marijuana Agree to transfusion: Yes service: No Current occupational status: employed Sexual orientation: Straight/Heterosexual Gender identity: Female Cognitive needs: No Hearing needs: No Vision needs: Yes Female Reproductive History Menstrual Age of Menarche: 11 Questionnaire Thrive Questionnaire Date Thrive assessed: 06/25/24 I am a: Patient What is your living situation today?: I have a steady place to live Within the past 12 months, did the food you bought not last and you didn't have the money to get more?: Never true Within the past 12 months, did you worry whether your food would run out before you got money to buy more?: Never true Do you have trouble paying for medicines?: No Do you have trouble getting transportation to medical appointments?: No Do you have trouble paying your heating and electricity bill?: Yes Do you have trouble taking care of your child, family member or friend?: No Do you have trouble with day-to-day activities such as bathing, preparing meals, shopping, managing finances, etc.?: No Are you currently unemployed and looking for a job?: No Are you interested in more education?: Yes Please select the resources that you would like help with: Food Currently or been in a relationship where the following occur: No concerns reported THRIVE Score: 1 JESUS-7 AMB Questionnaire JESUS-7 Date JESUS - 7 assessed: 06/26/24 Source: Developed by Drs. Rian Wright, Krissy Alcaraz, Salvador Duran and colleagues, with an educational lee from [employer]. Review of Systems Const All systems reviewed & are unremarkable except as noted in HPI and below Physical exam (Primary Care) Vital Signs: Last Vital Signs Temp 97.1 F 08/14/24 09:35 Pulse 101 H 08/14/24 09:35 BP 88/60 L 08/14/24 09:35 Pulse Ox 97 08/14/24 09:35 Oxygen Delivery Method Room Air 08/14/24 09:35 BMI result Body Mass Index 15.9 Tobacco/Smoking Status: Tobacco use Status Tobacco use date assessed 06/26/24 08/14/24 09:35 Patient Tobacco Use Status Never used Tobacco 08/14/24 09:35 e-Cigarette/Vaping Use Currently Using 08/14/24 09:35 Thrive Assessment: Date of Thrive Assessment Date Thrive assessed 06/25/24 08/14/24 09:35 Currently or been in a relationship where the following occur: No concerns reported Const General: no acute distress Nutritional Appearance: underweight Orientation/consciousness: patient oriented x3 Resp Effort & Inspection: normal respiratory effort Cardio Heart sounds: S1 normal heart sound present and S2 normal heart sound present Neuro General: patient oriented x3, gait normal and moves all extremities Psych Speech and movement: Normal speech and movement present Thought content: suicidality and no homicidality Coding Level of Care Code Est Pt Level 4 (88459) Diagnoses Moderate episode of recurrent major depressive disorder F33.1 Depression Type: major depressive disorder Major depression recurrence: recurrent Active/Remission status: currently active Major depression episode severity: moderate Alcohol use disorder F10.90 Time Spent (min) 20 Assessment & Plan Assessment & Plan (1) Depression: Code(s): F32.A - Depression, unspecified Category: Medical Qualifiers: Depression Type: major depressive disorder Major depression recurrence: recurrent Active/Remission status: currently active Major depression episode severity: moderate Qualified Code(s): F33.1 - Major depressive disorder, recurrent, moderate Plan: Referred to [facility] for Psych and therapy. Refilled medications. (2) Alcohol use disorder: Code(s): F10.90 - Alcohol use, unspecified, uncomplicated Category: Medical Plan: Referred to [facility] for Psych and therapy. Orders: Referrals Psychiatry Referral F32.A - Depression, unspecified Medications: New acetaminophen 325 mg PO Q6H PRN 30 caps 0RF fever or pain clonidine HCl 0.1 mg PO Q4H PRN 30 tabs 0RF alcohol withdrawal F33.1 - Major depressive disorder, recurrent, moderate loratadine (Allergy Relief (loratadine)) 10 mg PO DAILY 30 caps 0RF melatonin 10 mg (2 x 5 mg) PO BEDTIME PRN 30 tabs 0RF sleep fluticasone propionate 50 mcg/actuation 1 spray intranasal BID 16 grams 0RF
== END 2024-08-14 10:23 | disposition home or self-care (01) ==
LOC: HO.HMCH 09:33
PROVIDERS: Visit Provider Nurse Practitioner Family
DX: F33.1 Major depressive disorder, recurrent, moderate (principal); F10.90 Alcohol use, unspecified, uncomplicated

== ENCOUNTER → 2024-08-14 09:32 | Outpatient (BNVA) | payer BC, SELFPAY | PROVIDERS: Visit Provider Nurse Practitioner Family ==

== ENCOUNTER 2025-01-13 15:23 | Outpatient (REF) | payer BC, SELFPAY ==
[2025-01-14 03:41] LABS: Syphilis Screen Nonreactive (Nonreactive)
[2025-01-14 04:32] LABS: HBsAGNum1 0.38 S/CO (0.00-0.99); HIV Num 1 0.05 S/CO (0.00-0.99); Hepatitis B Surface Antigen Negative (Negative); ~HepC Num1 0.07 S/CO (0.00-0.79); ~Hepatitis C Antibody Nonreactive (Nonreactive)
== END 2025-01-13 15:24 | disposition home or self-care (01) ==
LOC: HO.LAB 15:23
PROVIDERS: Visit Provider Obstetrics & Gynecology
DX: Z01.419 Encounter for gynecological examination (general) (routine) without abnormal findings (principal); N76.0 Acute vaginitis; B96.89 Other specified bacterial agents as the cause of diseases classified elsewhere
CPT/HCPCS: 36415; 86780; 86803; 87340; 87389

== ENCOUNTER 2025-01-13 15:23 | Outpatient (AMB) | payer BC, SELFPAY ==
--- OUTSIDE RECORDS SUMMARY | 2025-01-08 11:15 | XMS_ITS ---
Author Organization [facility] Address [address] [place] [id number] Care Team Providers Care Facer Operator Name Role Phone KENNEDY RAHMAN Unavailable [phone] REASON FOR VISIT pelvic exam Social History Sex Assigned At : Social History Observation Description Sex Assigned At Female Encounters Encounter Location Date Provider Diagnosis [address] [id number] KENNEDY RAHMAN Plan Of Treatment Next Appt Details Provider Name:KENNEDY RAHMAN, 04:00:00 PM, [address] [place] [address], [id number], Progress Notes * Emilia PAINTING KDOB: 0 (24 yo F)Acc No.[id number]:01/08/2025 Progress Notes Patient: Luis STUARTley Jan Provider: Karthikeyan RAHMAN :2000 A ge:24 Y S ex:Female Date:01/08/2025 Address:[address] [place], [place] [id number] Subjective: * Chief Complaints: * 1 . Pelvic exam. * Medical History: Objective: * Vitals: Assessment: Plan: * Treatment: * Billing Information: * Visit Code: * Procedure Codes: * Electronic signature of SULY RAHMAN CNM on 01/13/2025 at 04:37 PM EDT Sign off status: Pending * Provider: Karthikeyan RAHMAN Date: 01/08/2025 Generated for Tomi ng/[place]/eTransmitting on: 01/13/2025 04:37 PM EDT
[2025-01-13 15:28] VITALS: BMI 16.5
--- NOTE | 2025-01-13 15:28 | A.OFFVIS_ITS ---
Vital Signs 01/13/25 15:28 Height 5 ft 2 in Weight 90 lb 6 oz BMI 16.5 Intake Visit Reasons: vulvar itching/ irritation Training Director Required: No Accompanied by: Self / Same As Patient Allergies No Known Allergies Allergy (Verified 01/13/25 15:30) Is last menstrual period known: Yes HPI Comments Details: Presenting for annual exam complaining of vulvovaginal discharge associated with the patient's vaginal odor PFSH Medical History G tube feedings Anxiety Acid reflux Asthma Surgical History H/O eye surgery Family History Maternal Grandmother Diabetes Father HTN (hypertension) Mother Anemia H/O blood clots Maternal Grandfather Cancer determined by biopsy of stomach Paternal Grandfather Throat cancer Social History Household Members: Family and Children Household Members Other:: father and siblings Both parents involved: Yes Caregiver staying overnight: No Housing: House Are you a primary pharmacy customer care specialist to a significant other at home: No Do you presently have visiting nurse or other home services: No 75 years or older and lives alone: No Alcohol intake: former Patient Tobacco Use Status: Never used Tobacco e-Cigarette/Vaping Use: Currently Using Agree to transfusion: Yes service: No Current occupational status: employed Current occupation: [employer] Sexually active: No Sexual orientation: Straight/Heterosexual Gender identity: Female Cognitive needs: No Hearing needs: No Vision needs: Yes Female Reproductive History Menstrual Age of Menarche: 11 Review of Systems Const All systems reviewed & are unremarkable except as noted in HPI and below Card Reports as per HPI Resp Reports as per HPI GI Reports as per HPI and Reports no additional complaints Reports as per HPI Physical Exam Vital Signs: BMI result Body Mass Index 16.5 Const General: cooperative, healthy appearing and comfortable Chest Chest palpation & inspection: normal inspection of the chest and normal palpation of entire chest wall Breast/axilla inspection: normal inspection of the breasts and normal inspection of the axillae Breast/axilla palpation: normal palpation of the breasts, normal palpation of the axillae and no axillary lymphadenopathy Resp Effort & Inspection: normal respiratory effort Auscultation: clear to auscultation bilaterally Percussion: percussion normal Cardio Palpation: normal PMI Rate: regular rate Rhythm: regular rhythm Heart sounds: no murmurs and no rubs Peripheral pulses: Peripheral pulses 2+ throughout GI Inspection: Yes normal to inspection Palpation (GI): Soft to palpation, nontender, no guarding, not rigid and No hepatosplenomegaly present Percussion: Yes normal to percussion Auscultation: normal bowel sounds Rectal Exam - Female: deferred General: Yes bladder normal to palpation External Female Exam: No lesion Speculum Exam - Vagina: normal appearance of the vagina, normal palpation, no rmal vaginal discharge and not erythematous Speculum Exam - Cervix: normal appearance of the cervix and normal palpation Bimanual exam- vagina & uterus: normal bimanual exam, normal palpation, uterine size normal, bladder normal to palpation, consistency normal and normal palpation Bimanual Exam- Adnexa, other: normal adnexae, no masses and no tenderness Assessment & Plan Assessment & Plan (1) Well woman exam: Code(s): Z01.419 - Encounter for gynecological examination (general) (routine) without abnormal findings Category: Medical Plan: Pap smear done. Counseled the patient about the recommended dietary allowance of 1000 mg of Calcium & 600 IU of vitamin D. The patient was instructed to perform monthly self-breast exams and to schedule an annual exam in a year; All questions answered and the patient verbalized understanding. Instructed the patient to schedule annual exam in a year (2) Vulvovaginitis: Comment: Mixed Code(s): N76.0 - Acute vaginitis Category: Medical Plan: GC and chlamydia cultures with BV panel taken. Per CDC recommendation, will screen for STI, HepBs Ag, HIV, RPR, Hep C Ab ordered. Will treat with Flagyl 500 mg p.o. b.i.d. x 7 days and Terazol 0.8% q.h.s. for 3 days. Instructions given to the patient to refrain from sexual activity or to use condoms consistently and correctly during the BV treatment regimen, not to douch, it might increase the risk for relapse, and to call if symptoms persist or recur. Orders: Orders Syphilis Screen Today B96.89 - Other specified bacterial agents as the cause of diseases classified elsewhere, N76.0 - Acute vaginitis HIV Ab/Ag Today B96.89 - Other specified bacterial agents as the cause of diseases classified elsewhere, N76.0 - Acute vaginitis Hepatitis B Surface Antigen Today B96.89 - Other specified bacterial agents as the cause of diseases classified elsewhere, N76.0 - Acute vaginitis Hepatitis C Antibody Today B96.89 - Other specified bacterial agents as the cause of diseases classified elsewhere, N76.0 - Acute vaginitis Medications: New terconazole 0.8% 1 appful vaginal BEDTIME 20 grams 0RF 3 days metronidazole 500 mg PO BID 14 tabs 0RF 7 days Coding Level of Care Code Est Pt Level 3 (94457) Diagnoses Well woman exam Z01.419 Vulvovaginitis N76.0
--- OUTSIDE RECORDS SUMMARY | 2025-01-13 16:36 | XMS_ITS | Encounter Summary ---
Author Organization [facility] Address [address] [place] [address] Phone Care Team Providers Care Blasting Entry Specialist Name Role Phone Yolis Jenkins MD Primary Care Provider [phone] Encounter Details Date Type Department Care Team (Late st Contact Info) Description 02/16/2015 Documentation [facility] [place] Family Medicine [address] [place] [address] Family Medicine, Physician [address] [place], [place] [address] Social History Tobacco Use Types Packs/Day Years Used Date Smoking Tobacco: Never Assessed Comments Unknown Sex and Gender Information Value Date Recorded Sex Assigned at Not on file Legal Sex Female 5:10 PM EDT Gender Identity Female 08/21/2020 3:06 PM EDT Sexual Orientation Straight 01/06/2021 4: 00 PM EDT documented as of this encounter Plan of Treatment Not on file documented as of this encounter Visit Diagnoses Not on filedocumented in this encounter Care Teams Blasting Entry Specialist Relationship Specialty Start Date End Date Yolis Jenkins MD [address] [place] [id number] PCP - General Pediatrics 11/24/18 09/09/22 documented as of this encounter
--- OUTSIDE RECORDS SUMMARY | 2025-01-13 16:36 | XMS_ITS | Encounter Summary ---
Author Organization [facility] Address [address] [place] [address] Phone Care Team Providers Care Hoop Bender Tank Name Role Phone Yolis Jenkins MD Primary Care Provider [phone] Encounter Details Date Type Department Care Team (Late st Contact Info) Description 04/07/2015 Documentation [facility] [place] Family Medicine [address] [place] [address] Family Medicine, Physician [address] [place], [place] [address] Social History Tobacco Use Types Packs/Day Years [...] on filedocumented in this encounter Care Teams Hoop Bender Tank Relationship Specialty Start Date End Date Yolis Jenkins MD [address] [place] [address] PCP - General Pediatrics 11/24/18 09/09/22 documented as of this encounter
--- OUTSIDE RECORDS SUMMARY | 2025-01-13 16:36 | XMS_ITS | Encounter Summary ---
Author Organization [facility] Address [address] [place] [address] Phone Care Team Providers Care Inside Sales Representative Name Role Phone Yolis Jenkins MD Primary Care Provider [phone] Encounter Details Date Type Department Care Team (Late st Contact Info) Description 03/03/2010 Documentation [facility] [place] Medicine [address] [place] [address] Family Medicine, Physician [address] [place], [place] [address] Social History Tobacco Use Types Packs/Day Years [...] on filedocumented in this encounter Care Teams Inside Sales Representative Relationship Specialty Start Date End Date Yolis Jenkins MD [address] [place] [address] PCP - General Pediatrics 11/24/18 09/09/22 documented as of this encounter
--- OUTSIDE RECORDS SUMMARY | 2025-01-13 16:36 | XMS_ITS | Encounter Summary ---
Author Organization [facility] Address [address] [place] [address] Phone Care Team Providers Care Rate Manager Name Role Phone Yolis Jenkins MD Primary Care Provider [phone] Encounter Details Date Type Department Care Team (Late st Contact Info) Description 04/19/2010 [place]ation [facility] [place] [address] [place] [address] Family Medicine, Physician [address] [place], [place] [address] Social History Tobacco Use Types Packs/Day Years [...] on filedocumented in this encounter Care Teams Rate Manager Relationship Specialty Start Date End Date Yolis Jenkins MD [address] [place] [address] PCP - General Pediatrics 11/24/18 09/09/22 documented as of this encounter
--- OUTSIDE RECORDS SUMMARY | 2025-01-13 16:36 | XMS_ITS | Encounter Summary ---
Author Organization [facility] Address [address] [place] [address] Phone Care Team Providers Care Car Electronics Installer Name Role Phone Yolis Jenkins MD Primary Care Provider [phone] Reason for Visit * Reason Comments Med Refill Encounter Details Date Type Department Care Team (Late st Contact Info) Description 12/17/2018 Refill [facility] [place] [address] [place] [address] Alexandra Putnam MD [address] [place] [address] Mild intermittent asthma without complication Social History Tobacco Use Types Packs/Day Years Used Date Smoking Tobacco: Never Smokeless Tobacco: Never Comments:Never smoker Alcohol Use Standard Drinks/Week Comments No 0 (1 standard drink = 0.6 oz pur e alcohol) Comments No Sex and Gender Information Value Date Recorded Sex Assigned at Not on file Legal Sex Female 5:10 PM EDT Gender Identity Female 08/21/2020 3:06 PM EDT Sexual Orientation Straight 01/06/2021 4: 00 PM EDT documented as of this encounter Miscellaneous Notes * Telephone Encounter - Kristan Joseph LPN - 12/17/2018 2:12 PM EDT Refill request for Proair. Last PE 11/10/18/VINI documented in this encounter Plan of Treatment Not on file documented as of this encounter Visit Diagnoses Diagnosis Mild intermittent asthma without complication documented in this encounter Care Teams Car Electronics Installer Relationship Specialty Start Date End Date Yolis Jenkins MD [address] [place] [address] PCP - General Pediatrics 11/24/18 09/09/22 documented as of this encounter
--- OUTSIDE RECORDS SUMMARY | 2025-01-13 16:36 | XMS_ITS | Encounter Summary ---
Author Organization [facility] Address [address] [place] [address] Phone Care Team Providers Care Matrix Drier Tender Name Role Phone Yolis Jenkins MD Primary Care Provider [phone] Encounter Details Date Type Department Care Team (Late st Contact Info) Description 10/31/2015 Documentation [facility] [place] [address] [place] [address] Family Medicine, Physician [address] [place], [place] [address] Social History Tobacco Use Types Packs/Day Years [...] on filedocumented in this encounter Care Teams Matrix Drier Tender Relationship Specialty Start Date End Date Yolis Jenkins MD [address] [place] [phone] PCP - General Pediatrics 11/24/18 09/09/22 documented as of this encounter
--- OUTSIDE RECORDS SUMMARY | 2025-01-13 16:36 | XMS_ITS | Encounter Summary ---
Author Organization [facility] Address [address] [place] [address] Phone Care Team Providers Care Senior System Operator Name Role Phone Yolis Jenkins MD Primary Care Provider Encounter Details Date Type Department Care Team (Late st Contact Info) Description 02/21/2015 Documentation [facility] [place] Family Medicine [address] [place] [address] Family Medicine, Physician [address] [place], [place] [address] Social History Tobacco Use Types Packs/Day Years [...] on filedocumented in this encounter Care Teams Senior System Operator Relationship Specialty Start Date End Date Yolis Jenkins MD [address] [place] [address] PCP - General Pediatrics 11/24/18 09/09/22 documented as of this encounter
--- OUTSIDE RECORDS SUMMARY | 2025-01-13 16:36 | XMS_ITS | Encounter Summary ---
Author Organization [facility] Address [address] [place] [address] Phone Care Team Providers Care Optical Effects Layout Person Name Role Phone Yolis Jenkins MD Primary Care Provider [phone] Encounter Details Date Type Department Care Team (Late st Contact Info) Description 09/21/2010 Documentation [facility] [place] Family Medicine [address] [place] [address] Family Medicine, Physician [address] [place], [place] [address] Social History Tobacco Use Types Packs/Day Years [...] on filedocumented in this encounter Care Teams Optical Effects Layout Person Relationship Specialty Start Date End Date Yolis Jenkins MD [address] [place] [address] PCP - General Pediatrics 11/24/18 09/09/22 documented as of this encounter
--- OUTSIDE RECORDS SUMMARY | 2025-01-13 16:36 | XMS_ITS | Encounter Summary ---
Author Organization [facility] Address [address] [place] [phone] Phone Care Team Providers Care Life Guard Name Role Phone Yolis Jenkins MD Primary Care Provider [phone] Encounter Details Date Type Department Care Team (Late st Contact Info) Description 09/21/2010 Documentation [facility] [place] [address] [place] [address] Family Medicine, Physician [address] [place], [place] [address] Social History Tobacco Use Types Packs/Day Years [...] on filedocumented in this encounter Care Teams Life Guard Relationship Specialty Start Date End Date Yolis Jenkins MD [address] [place] [address] PCP - General Pediatrics 11/24/18 09/09/22 documented as of this encounter
--- OUTSIDE RECORDS SUMMARY | 2025-01-13 16:36 | XMS_ITS | Clinical Summary ---
Author Organization [facility] Address [address] [place] [address] Phone Care Team Providers Care Cement Side Laster Name Role Phone Unavailable Primary Care Provider Unavailabl e Allergies No known active allergies Medications Spacer/Aero-Hold ing Chambers (AeroChamber Plus Rivera-Vu) miscIndications: Mild persistent asthma without complication Ut dict 2 each 1 0 Active fluticasone 50 MCG/ACT nasal sprayIndications :Nasal congestion SPRAY 1 SPRAY INTO EACH NOSTRIL EVERY DAY 1 Units 11 0 Active albuterol (2.5 MG/3ML) 0.083% nebulizer solutionIndicati ons:Mild persistent asthma without complication Take 3 mL (2.5 mg total) by nebulization every 4 (four) hours as needed for wheezing or shortness of breath. 1 Package 1 0 Active Additional Information Patient not taking.Reported on 09/09/2020 Qvar RediHaler 80 MCG/ACT aerosolIndicatio ns:Moderate persistent asthma without complication TAKE 2 PUFFS BY MOUTH TWICE A DAY 10.6 g 3 1 Active albuterol HFA (ProAir HFA) 108 (90 Base) MCG/ACT inhalerIndicatio ns:Mild intermittent asthma without complication Inhale 2 puffs every 4 (four) hours as needed for wheezing. for wheezing 1 Units 5 1 Active Active Problems Problem Noted Date Diagnosed Date Alcohol use 09/09/2020 Assessment & Plan (01/06/2021 3:49 PM EDT): Cutting down - 1 shot after work, maybe 2. Not vomiting or passing out, not getting really drunk. Remembering to eat. Working with Mahnaz from the [facility], making progress. Assessment & Plan (09/09/2020 5:46 PM EDT): Refer to [facility] for management of this as well as other psychiatric comorbidities. Cannabis abuse, daily use 09/09/2020 Assessment & Plan (01/06/2021 3:48 PM EDT): Cutting down. Down to 1/2-1 blunt/day during the week, 1-3 on weekends. Seeing Mahnaz from [facility] regularly. Assessment & Plan (09/09/2020 5:46 PM EDT): Refer to [facility] for management of this as well as other psychiatric comorbidities. Anxiety disorder 08/22/2020 Anxiety and depression 08/22/2018 Overview (11/27/2019): 11/2019 - reasonably controlled with Fluoxetine 10 mg daily, but struggling a bit with EtOH use. Warm handoff to today, with patient's enthusiastic consent. Assessment & Plan (09/09/2020 5:47 PM EDT): Struggling quite a bit these days. Overwhelmed with school and work, and self-medicating with cannabis and alcohol. Referred to [facility] for management. Has followup planned with our [facility]. Assessment & Plan (11/27/2019 1:43 PM EDT): Reasonably controlled with Fluoxetine 10 mg daily, but struggling a bit with EtOH use. Warm handoff to today, with patient's enthusiastic consent. Follow up in 2 months. Has refills. Assessment & Plan (04/27/2019 11:28 AM EST): Doing quite well on Prozac 10 mg QD. Just picked up 90 day RF on 04/19/19. Will call when gets closer to finished for refill. Switching program from nursing at [facility] to med administration at [facility] - feels very good about decision. Return in 3 mo. Assessment & Plan (01/05/2019 3:20 PM EDT): Taking fluoxetine 10 mg QD as rx by Dr. Putnam. Doing very well on it - feels anxiety is much better. Still seeking therapist - looking at [facility] or through [facility]. Renew 3 month supply of fluoxetine today - return in 3 months for review. Assessment & Plan (11/10/2018 11:42 AM EDT): Stable. PHQ-9 score today is 0. Patient seeking to establish care with therapist. Assessment & Plan (09/15/2018 10:43 AM EDT): Continue Prozac 10 mg daily. Patient is tolerating medication without significant adverse effects. Denies the use of marijuana. Follow up in 1 month for revaluation. Assessment & Plan (08/22/2018 2:38 PM EDT): Connect with therapist again. DO NOT SMOKE MARIJUANA. Started on Prozac 10 mg daily. Reviewed potiental side effect included black box warning. Advised to stop taking medication and call PCP if there are thoughts of self harm. Follow up in 2 weeks for re-evaluation. Dysmenorrhea in adolescent 11/25/2013 Overview (01/06/2021): Was on OCPs since 2013 for dysmenorrhea. Now has Nexplanon. 10/2017, removed 09/2020. Now off hormonal meds, using condoms for BC. Assessment & Plan (01/06/2021 3:46 PM EDT): Off hormones, using condoms for BC. Assessment & Plan (11/27/2019 1:44 PM EDT): Resolved with Nexplanon. Check STD testing today per pt request. Assessment & Plan (04/27/2019 11:29 AM EST): No menses x 3 months - has Nexplanon. Last SA in 01/2019. Will check hcg. Assessment & Plan (11/10/2018 11:42 AM EDT): Has occasional spotting. Advised to establish care with motorsports technician. Attention deficit hyperactiv ity disorder (ADHD), predominantly inattentive type 09/19/2009 Overview (02/05/2017): On no medication as appetite/poor growth has been a snf concern. Accommodations only and is doing well in school now with good performance. Gastroesophageal reflux disease without esophagi tis 09/19/2009 Overview (11/08/2017): History of GERD/FTT/Feeding Difficulties. Had a Deanna and G tube 2004 but G tube is out and no longer sees GI. Was on 3 cans of pediasure and periactin when younger. No supplements now. G tube removed at mother's request 2012. Was seeing Dr. Thakur/Ped GI. Assessment & Plan (11/10/2018 11:41 AM EDT): Stable. Controlled by diet Moderate persistent asthma without complication 09/19/2009 Overview (11/27/2019): Preventive med is Qvar 80, 2 puffs bid daily and singulair 10 mg qd. Uses albuterol MDI for rescue therapy. Generally well controlled. Assessment & Plan (01/06/2021 4:05 PM EDT): ACT Score: 18 A score of 19 or less may indicate that asthma symptoms may not be as well controlled as they could be. QVAR 80 2 puffs BID, off singulair now with no change. Albuterol prn. Feels a little wheezy from time to time but mostly good. F/u in 3 mo. Assessment & Plan (10/26/2019 9:38 AM EDT): Asking for new Rx for aerochamber and albuterol neb (though discussed that she shouldn't need this, MDI just as effective)- Rx done. Needs asthma check- will have this scheduled. Strabismus 09/19/2009 Overview (02/05/2017): Sees Dr. Cisse. Has glasses which help. Assessment & Plan (11/27/2019 1:45 PM EDT): F/u with ophtho soon. Resolved Problems Problem Noted Date Diagnosed Date Resolved Date Nexplanon removal 10/26/2019 01/06/2021 Overview (10/19/2020): Placed at [facility] 04/201710/16/2020: Nexplanon removed by surgery after unsuccessful attempts at [facility]. Assessment & Plan (01/06/2021 3:44 PM EDT): Finally removed 10/16/20 by surgery. Assessment & Plan (09/09/2020 5:45 PM EDT): Lots of drama re removal, as it is apparently placed deeper than expected. She has appointment for another attempt on September 21. Assessment & Plan (11/27/2019 1:40 PM EDT): Palpated easily by myself and patient at today's visit. Assessment & Plan (10/26/2019 9:17 AM EDT): Worried she can't feel it so asked me to feel it. I was able to palpate it, though did feel deeper (and more proximal) than expected. Advised to discuss with PCP as well as due for well visit soon. 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 Was followed in endocrine clinic and was on growth hormone for awhile. Had a G tube for feeding difficulties and pediasure supplementation when a younger child. G tube is out and no longer requiriing any supplemental nutritional drinks. Was on periactin 4 mg bid for awhile to increase her appetite. Prematurity 09/19/2009 11/10/2018 Overview (02/05/2017): 27 week premie, IUGR, BPD. Immunizations Immunization Administration Dates Next Due COVID-19 Moderna, monovalent , 12+ years 08/05/2020 DTaP 5 02/11/2004, 1,02/05/2000,12/07,1999 H1N1 04/20/2009,03/17/2009 HPV, Quadrivalent 11/25/2013,02/11/2012,12/06/19 12 Hep A, ped/adol 12/15/2014,09/20/2010 Hep B, ped/adol 04/24/2000,01/03/2000,1999 Hib (PRP-T) 11/11/2000, 0,1999,09/17 IPV 02/11/2004, 1,02/05/2000,09/17 Influenza Split 02/11/2012,02/02/2011,02/09/2010 Influenza, injectable, quadr ivalent, preservative free 02/12/2020,03/12/2019,05/19/2018,03/26,01/26/2016,02/03/2015,03/29/2014 Influenza, injectable, trivalent 009,07/16/2007,03/13/2007,04/04 MMR 02/11/2004,08/07/2000 Meningococcal Conj (Menactra) MCV4P 11/07/2017,0 12/06/2011 PPD Test 02/10/2020 Pneumococcal Conjugate 08/07/2000,1999,02/05/2000,01/02 Tdap 12/06/2011 Varicella 12/15/2020,01/06/2007,11/11/2000 Family History Relation Name Status Comments Father Alive Father: Alive a nd well Half-Brother Alive Half brother (M ): Alive and well Mother Bell Alive Mother: Alive a nd well Sister Alive Sister: Alive a nd well Social History Tobacco Use Types Packs/Day Years Used Date Smoking Tobacco: Never Smokeless Tobacco: Never Comments:Never smoker Alcohol Use Standard Drinks/Week Comments No 0 (1 standard drink = 0.6 oz pur e alcohol) Hunger/Food Answer Date Recorded In the last 12 months, did y ou or your family ever eat less than you felt you should because there wasn't enough money for food? No 12/30/2020 Stable Housing Answer Date Recorded Are you worried that in the next 2 months you may not have stable housing? No 12/30/2020 Transportation Concerns Answer Date Rec orded In the last 12 months, have you or your family ever had to go without healthcare because you didn't have a way to get there? No 12/30/2020 Hazards in Home Answer Date Recorded Think about the place you li ve. Do you have problems with any of the following? Pests (mice or roaches), mold, no/not working smoke detectors, water leaks, no window guards. No 2020 Financing Utilities Answer Date Recorde d In the last 12 months, has t he electric, gas, oil, or water company threatened to shut off your services in your home? No 12/30/2020 Safety at Home Answer Date Recorded Are you or your family worried about feeling saf e in your home? No 12/30/2020 Outside Support Answer Date Recorded Do you feel that you need mo re support from other people or programs to help you care for yourself or your family? No 12/30/2020 Understanding Health Concerns Answer Da te Recorded Do you need help understandi ng your or your child's healthcare needs (diagnosis, medications, plan, etc.)? No 12/30/2020 Financing Health Concerns Answer Date R ecorded In the last 12 months, was t here a time when your child needed to see a doctor or get medications or supplies but could not because of cost? No 12/30/2020 Missing School or Work Answer Date Chuy rded Did you or your child miss s chool or work because of a health problem that could have been avoided? No 12/30/2020 Comments No Sex and Gender Information Value Date Recorded Sex Assigned at Not on file Legal Sex Female 5:10 PM EDT Gender Identity Female 08/21/2020 3:06 PM EDT Sexual Orientation Straight 01/06/2021 4: 00 PM EDT Last Filed Vital Signs Vital Sign Reading Time Taken Comments Blood Pressure 112/74 01/06/2021 3:18 PM EDT Pulse 88 11/27/2019 11:02 AM EDT Temperature 37.2 C (98.9 F) 01/06/2021 3:18 PM EDT Respiratory Rate - - Oxygen Saturation 100% 08/22/2018 1:24 PM EDT Inhaled Oxygen Concentration - - Weight 37.8 kg (83 lb 6.4 oz) 01/06/2021 3:18 PM EDT Height 150 cm (4' 11.06 ) 01/06/2021 3:18 PM EDT Body Mass Index 16.81 01/06/2021 3:18 PM EDT Plan of Treatment Health Maintenance Due Date Last Done Comments COVID-19 Vaccine ( season) 2024 08/05/2020, 06/24/2020 Influenza Vaccines (#1) 2024 02/12/20, 03/12/2019, 05/19/2018, Additional history exists DTaP,Tdap,and Td Vaccines (8 - Td or Tdap) 01/19/2032 01/18/2022, 12/06/2011, 02/11/2004, Additional history exists Hepatitis B Vaccines Completed 04/24/2000, 01/03/2000, 1999 Pneumococcal Vaccine Completed 08/07/2000, 03/25/2000, 02/05/2000, Additional history exists HIB Vaccines Completed 11/11/2000, 01/18, 1999, Additional history exists IPV Vaccines Completed 02/11/2004, 03/21, 02/05/2000, Additional history exists HPV Vaccines Completed 11/25/2013, 01/19, 12/06/2011 Hepatitis A Vaccines Completed 12/15/2014, 09/21/19 11 Meningococcal Vaccine Completed 11/07/2017, 012 Varicella Vaccines Completed 12/15/2020, 0 01/06/2007, 11/11/2000 MMR Vaccines Completed 03/08/2022, 01/19, 08/07/2000 Men B Vaccine Aged Out No longer elig ible based on patient's age to complete this topic Procedures * Due to [place] state law, this organization might not be sharing sensitive test results. Procedure Name Priority Date/Time Associated Diagnosis Comments CHLAMYDIA AND GONORRHEA, AMPLIFIED Routine 01/06/2021 3:26 PM EDT Screening examination for bacterial and spirochetal disease from Last 3 Months or Most Recently Relevant to Health Maintenance Results * Due to [place] state law, this organization might not be sharing sensitive test results. * Chlamydia and Gonorrhoea, Amplified (01/06/2021 3:26 PM EDT) Chlamydia Trachomatis, DNA Probe NEGATIVE (NEG) [facility] Comment: No Chlamydia Trachomatis RNA detected in this patient's sample (REFERENCE RANGE/NORMAL VALUE: NOT DETECTED) Note: This test uses silviculture professor- mediated amplification method to detect rRNA from C. Trachomatis URINE GC AMP PROBE NEGATIVE (NEG) [facility] Comment: No Neisseria Gonorrhoeae RNA detected in this patient's sample (REFERENCE RANGE/NORMAL VALUE: NOT DETECTED) NOTE: This test uses silviculture professor-mediated amplification method to detect rRNA from N.Gonorrhoeae. A negative result does not preclude infection. In the case of a negative urine result, testing of an endocervical(female) or urethral (male) specimen is recommended if there is high clinical suspicion of infection. Due to very high sensitivity of Nucleic Acid Amplification Test, false positive results may occur. Therefore, specimen handling is extremely important. In patients in whom the disease is unlikely, additional sample for testing should be considered after an initial positive result. The performance characteristics of this test have not been evaluated in children. The Aptima Combo2 assay is not intended for the evaluation of suspected sexual abuse or for other medico-legal indications. The ordering provider should assess if the patient had consensual sex without risk of sexual abuse. Consult the [facility] if needed. Contact phone number . Therapeutic failure or success cannot be determined with the Aptima Combo2 assay since nucleic acid may persist following appropriate antimicrobial therapy. The Centers for Disease Control and Prevention (CDC) recommends confirmatory retesting using culture or a different nucleic acid amplification test when positive results occur, if indicated. Testing performed or reported by [facility], a Service of [facility], [address] [place] [address] Gilbert Torres MD, Police Sergeant [employer] [facility]# [id number] Urine 01/06/2021 3:26 PM EDT 01/06/2021 10:45 PM EDT us Yolis Jenkins MD LAB MICROBIOLOGY - GENERAL ORDER MARYANNE Final Result [facility] from Last 3 Months or Most Recently Relevant to Health Maintenance
--- OUTSIDE RECORDS SUMMARY | 2025-01-13 16:36 | XMS_ITS | Encounter Summary ---
Author Organization [facility] Address [address] [place] [phone] Phone Care Team Providers Care Senior Construction Manager Name Role Phone Yolis Jenkins MD Primary Care Provider Encounter Details Date Type Department Care Team (Late st Contact Info) Description 02/16/2011 Documentation [facility] [place] Family Medicine [address] [place] [address] Family Medicine, Physician [address] [place], [place] [address] Social History Tobacco Use Types Packs/Day Years [...] filedocumented in this encounter Care Teams Senior Construction Manager Relationship Specialty Start Date End Date Yolis Jenkins MD [address] [place] [phone] PCP - General Pediatrics 11/24/18 09/09/22 documented as of this encounter
--- OUTSIDE RECORDS SUMMARY | 2025-01-13 16:37 | XMS_ITS | Encounter Summary ---
Author Organization [facility] Address [address] [place] [address] Phone Care Team Providers Care Data Collection Specialist Name Role Phone Yolis Jenkins MD Primary Care Provider [phone] Reason for Visit * Reason Comments Med Refill Encounter Details Date Type Department Care Team ([facility] st Contact Info) Description 04/28/2017 Refill [facility] [address] [place] [address] Joie Hinds MD [address] [place] [address] Mild intermittent asthma without complication Social History Tobacco Use Types Packs/Day Years Used Date Smoking Tobacco: Never Comments:Never smoker Comments Unknown Sex and Gender Information Value Date Recorded Sex Assigned at Not on file Legal Sex Female 5:10 PM EDT Gender Identity Female 08/21/2020 3:06 PM EDT Sexual Orientation Straight 01/06/2021 4: 00 PM EDT documented as of this encounter Miscellaneous Notes * Telephone Encounter - Melvina Jett LPN - 04/29/2017 2:05 PM EST LM PCP MIKE: Pharm fax refill request proair and albuterol for nebulizer. Last filled 10/03. EH documented in this encounter Plan of Treatment Not on file documented as of this encounter Visit Diagnoses Diagnosis Mild intermittent asthma without complication documented in this encounter Care Teams Data Collection Specialist Relationship Specialty Start Date End Date Yolis Jenkins MD [address] [place] [address] PCP - General Pediatrics 11/24/18 09/09/22 documented as of this encounter
--- OUTSIDE RECORDS SUMMARY | 2025-01-13 16:37 | XMS_ITS | Encounter Summary ---
Author Organization [facility] Address [address] [place] [phone] Phone Care Team Providers Care Public Safety Police Name Role Phone Yolis Jenkins MD Primary Care Provider [phone] Encounter Details Date Type Department Care Team (Late st Contact Info) Description 12/14/2009 Documentation [facility] [place] Family Medicine [address] [place] [address] Family Medicine, Physician [address] [place], [place] [address] Social History Tobacco Use Types Packs/Day Years [...] on filedocumented in this encounter Care Teams Public Safety Police Relationship Specialty Start Date End Date Yolis Jenkins MD [address] [place] [address] PCP - General Pediatrics 11/24/18 09/09/22 documented as of this encounter
--- OUTSIDE RECORDS SUMMARY | 2025-01-13 16:37 | XMS_ITS | Encounter Summary ---
Author Organization [facility] Address [address] [place] [address] Phone Care Team Providers Care Sea Captain Name Role Phone Yolis Jenkins MD Primary Care Provider [phone] Encounter Details Date Type Department Care Team (Late st Contact Info) Description 02/01/2012 Documentation [facility] [place] [address] [place] [address] Family Medicine, Physician [address] [place], [place] [address]781 Social History Tobacco Use Types Packs/Day Years [...] on filedocumented in this encounter Care Teams Sea Captain Relationship Specialty Start Date End Date Yolis Jenkins MD [address] [place] [address] PCP - General Pediatrics 11/24/18 09/09/22 documented as of this encounter
--- OUTSIDE RECORDS SUMMARY | 2025-01-13 16:37 | XMS_ITS | Encounter Summary ---
Author Organization [facility] Address [address] [place] [address] Phone Care Team Providers Care Pump Installer Name Role Phone Yolis Jenkins MD Primary Care Provider [phone] Encounter Details Date Type Department Care Team (Late st Contact Info) Description 02/20/2011 Documentation [facility] Family Medicine [address] [place] [address] Family Medicine, Physician [address] [place], [place] [address] Social History Tobacco Use Types Packs/Day Years [...] on filedocumented in this encounter Care Teams Pump Installer Relationship Specialty Start Date End Date Yolis Jenkins MD [address] [place] [address] PCP - General Pediatrics 11/24/18 09/09/22 documented as of this encounter
--- OUTSIDE RECORDS SUMMARY | 2025-01-13 16:37 | XMS_ITS | Encounter Summary ---
Author Organization [facility] Address [address] [place] [address] Phone Care Team Providers Care Automatic Typewriter Inspector Name Role Phone Yolis Jenkins MD Primary Care Provider [phone] Encounter Details Date Type Department Care Team (Late st Contact Info) Description 11/02/2009 Documentation [facility] [place] Family Medicine [address] [place] [address] Family Medicine, Physician [address] [place], [place] [address] Social History Tobacco Use Types Packs/Day Years [...] on filedocumented in this encounter Care Teams Automatic Typewriter Inspector Relationship Specialty Start Date End Date Yolis Jenkins MD [address] [place] [address] PCP - General Pediatrics 11/24/18 09/09/22 documented as of this encounter
--- OUTSIDE RECORDS SUMMARY | 2025-01-13 16:37 | XMS_ITS | Encounter Summary ---
Author Organization [facility] Address [address] [place] [address] Phone Care Team Providers Care Sinker Winder Name Role Phone Yolis Jenkins MD Primary Care Provider [phone] Encounter Details Date Type Department Care Team (Late st Contact Info) Description 11/02/2009 [place]ation [facility] [place] [address] [place] [address] Family Medicine, Physician [address] [place], [place] [address] Social History Tobacco Use Types Packs/Day Years [...] on filedocumented in this encounter Care Teams Sinker Winder Relationship Specialty Start Date End Date Yolis Jenkins MD [address] [place] [address] PCP - General Pediatrics 11/24/18 09/09/22 documented as of this encounter
--- OUTSIDE RECORDS SUMMARY | 2025-01-13 16:37 | XMS_ITS | Encounter Summary ---
Author Organization [facility] Address [address] [place] [address] Phone Care Team Providers Care Payroll Analyst Name Role Phone Yolis Jenkins MD Primary Care Provider [phone] Encounter Details Date Type Department Care Team (Late st Contact Info) Description 01/03/2017 Conversion Encounter [facility] [address] [place] [address] Social History Tobacco Use Types Packs/Day Years [...] on filedocumented in this encounter Care Teams Payroll Analyst Relationship Specialty Start Date End Date Yolis Jenkins MD [address] [place] [address] PCP - General Pediatrics 11/24/18 09/09/22 documented as of this encounter
--- OUTSIDE RECORDS SUMMARY | 2025-01-13 16:37 | XMS_ITS | Encounter Summary ---
Author Organization [facility] Address [address] [place] [address] Phone Care Team Providers Care Trail Construction Worker Name Role Phone Yolis Jenkins MD Primary Care Provider [phone] Encounter Details Date Type Department Care Team (Late st Contact Info) Description 05/07/2016 [place]ation [facility] [place] [address] [place] [address] Family Medicine, Physician [address] [place], [place] [address] Social History Tobacco Use Types Packs/Day Years [...] on filedocumented in this encounter Care Teams Trail Construction Worker Relationship Specialty Start Date End Date Yolis Jenkins MD [address] [place] [address] PCP - General Pediatrics 11/24/18 09/09/22 documented as of this encounter
--- OUTSIDE RECORDS SUMMARY | 2025-01-13 16:37 | XMS_ITS | Patient Health Record ---
Author Organization [facility] Address [address] [place] [address] [phone] Care Team Providers Care Director Of Philanthropy Name Role Phone KENNEDY RAHMAN Unavailable [phone] Allergies Allergen (clinical drug ingredient) Drug/Non Drug Allergy documented on EMR Reaction Allergy Type Onset Date Status Dust Mites Unknown Allergy Active Pollen Pollen Unknown Allergy Active Results Component Value Reference Range Notes Wet Mount Reviewed date:12/09/2024 05:31:49 PM Interpretation:few yeast buds Performing Lab: Notes/Report: few yeast buds Clue Cells neg WBC few Hyphae few buds Trichomonas neg pH 4.5 MANASA Prep neg whiff NuSwab VG+, Maryse 6sp-1800 68 Reviewed date:12/14/2024 11:04:35 AM Interpretation:Normal Performing Lab:[facility], [address] [place] [address], [place], Phone - [phone], Director - Desirae Notes/Report: and Drug Administration. by [facility]. It has not been cleared or approved by the [employer] was [employer] and its performance characteristics determined 168064-Rcbfshu krusei, ADAM 587255-O parapsilosis/tropicalis; 121865-Faxipns lusitaniae, ADAM; Test(s) 147268-Xmakmlu albicans, ADAM; 985060-Mhpgaho glabrata, ADAM; and Drug Administration. by [facility]. It has not been cleared or approved by the [employer] was [employer] and its performance characteristics determined Ureaplasma spp ADAM Megasphaera 1; 449862-Zbktpxnlck hominis ADAM; 263268- Clinical Information:SRC:Cervix Atopobium vaginae Low - 0 BVAB 2 Low - 0 Megasphaera 1 Low - 0 Calculate total score by adding the 3 individual bacterial vaginosis (BV) marker scores together. Total score is interpreted as follows: Total score 0-1: Indicates the absence of BV. Total score 2: Indeterminate for BV. Additional clinical data should be evaluated to establish a diagnosis. Total score 3-6: Indicates the presence of BV. Maryse albicans, ADAM Negative Negative Maryse glabrata, ADAM Negative Negative C parapsilosis/tropicalis Negative Negative Th is assay does not differentiate C. tropicalis and C. parapsilosis. Maryse lusitaniae, ADAM Negative Negative Maryse krusei, ADAM Negative Negative Trich vag by ADAM Negative Negative Chlamydia trachomatis, ADAM Negative Negative Neisseria gonorrhoeae, ADAM Negative Negative Genital Mycoplasmas ADAM, [facility] [id number] Reviewed date:12/14/2024 10:44:29 AM Interpretation:Mycoplasma negative, Ureaplasma Positive Performing Lab:[facility] [place], [address] [facility], [place], Phone - [phone], Director - Desirae Notes/Report: Clinical Information:SRC:Cervix Megasphaera 1; 848864-Dkgizzbcwd hominis ADAM; 676289- Ureaplasma spp ADAM was developed and its performance characteristics determined by [employer]. It has not been cleared or approved by the Food and Drug Administration. Test(s) 189123-Tkfjtnl albicans, ADAM; 569904-Nuocsxo glabrata, ADAM; 104519-L parapsilosis/tropicalis; 085311-Wpnrmoq lusitaniae, ADAM; 375144-Pqgwvxx krusei, ADAM was developed and its performance characteristics determined by [employer]. It has not been cleared or approved by the Food and Drug Administration. Mycoplasma genitalium ADAM Negative Negative Mycoplasma hominis ADAM Negative Negative Ureaplasma spp ADAM Positive Negative IGP,rfx Apt HPV ASCU,16/18,4 - Reviewed date:01/12/2025 02:53:11 PM Interpretation:Normal Performing Lab:[facility], [facility] [address], [address], [place], Phone - [phone], Director - [facility] Notes/Report: No. of containers..01 ThinPrep Vial Clinical Information:SRC:Cervix [id number] DIAGNOSIS: NEGATIVE FOR INTRAEPITHELIAL LESION OR MALIGNANCY. Specimen adequacy: Satisfactory for evaluation. Endocervical and/or squamous metaplastic cells (endocervical component) are present. Clinician provided ICD10: Z01.419 Z11.51 Z11.8 Performed by: Sedrick Bo ytologist (ASCP) . . Note: The Pap smear is a screening test designed to aid in the detection of premalignant and malignant conditions of the uterine cervix. It is not a diagnostic procedure and should not be used as the sole means of detecting cervical cancer. Both false-positive and false-negative reports do occur. . Test Methodology: This liquid based ThinPrep(R) pap test was screened with the use of an image guided system. . The HPV DNA reflex criteria were not met with this specimen result therefore, no HPV testing was performed. . Wet Mount Reviewed date:12/23/2024 03:10:28 PM Interpretation:scant buds Performing Lab: Notes/Report: scant buds Clue Cells neg WBC few Hyphae scant buds Trichomonas neg pH 4.5 MANASA Prep neg whiff PDF Report Reviewed date:12/23/2024 09:22:13 AM Interpretation: Performing Lab:[facility], [address], [address], [place], Phone - [phone], Director - [facility] Notes/Report: Clinical Information:SRC:Cervix [id number] No. of containers..01 ThinPrep Vial Wet Mount Reviewed date:03/04/2024 02:40:26 PM Interpretation:Normal Performing Lab: Notes/Report: Normal Clue Cells neg WBC neg Hyphae neg Trichomonas neg pH 4.[address], Ng, Trich vag by [id number] Reviewed date:03/16/2024 01:26:33 PM Interpretation:Negative Performing Lab:[facility] Garcia, [address], [address], [place], Phone - [phone], Director - [facility] Notes/Report: Clinical Information:SRC:urine Chlamydia by ADAM Negative Negative Gonococcus by ADAM Negative Negative Trich vag by ADAM Negative Negative Urinalysis Reviewed date:06/05/2024 09:23:36 AM Interpretation:Normal Performing Lab: Notes/Report: Normal Leukocytes - Nitrates - Uro 0.2 Protein 15 pH 6.0 Blood - Spec Bandy 1.020 Ketones 5 Bilirubin 1 Glucose - Wet Mount Reviewed date:05/29/2024 03:44:47 PM Interpretation:Yeast buds Performing Lab: Notes/Report: Yeast buds Clue Cells neg WBC scant Hyphae couple of buds Trichomonas neg pH 4.5 MANASA Prep neg whiff Chlamydia/GC Amplification-1 [id number] Reviewed date:09/16/2024 01:00:13 PM Interpretation:Negative Performing Lab:[facility], [address], [address], [place], Phone - [phone], Director - [facility] Notes/Report: Chlamydia trachomatis, ADAM Negative Negative Neisseria gonorrhoeae, ADAM Negative Negative Ct, Ng, Trich vag by ADAM-183 160 Reviewed date:09/16/2024 12:59:56 PM Interpretation:Negative Performing Lab:[facility], [address], [address], [place], Phone - [phone], Director - [facility] Notes/Report: Chlamydia by ADAM Negative Negative Gonococcus by ADAM Negative Negative Trich vag by ADAM Negative Negative Wet Mount Reviewed date:09/11/2024 04:41:26 PM Interpretation:Yeast positive Performing Lab: Notes/Report: Yeast positive Clue Cells neg WBC neg Hyphae buds pos Trichomonas neg pH 4.5 MANASA Prep neg whiff Reason For Referral Reason 24 yr old with vulva r itching/irritation and concerns for recurrent yeast infections. Question of lichen sclerosis: hypopigmentation on exam. Started on clobetasol taper. Please further evaluation and confirm dx with biopsy. Stopped daily panty liner use and using caution with products being used Diagnosis 1 Lichen sclerosus et atrophicus (L90.0) Referral Organization [facility] Referring Provider First Name KENNEDY Referring Provider Last Name JOSIAH Referring Provider Speciality Certified Nurse Fiberglass Auto Body Repairer Referred Provider Specialty Gymnastics Coach Or Instructor General Notes KENNEDY RAHMAN 03:14:34 PM > Clt prefers [facility] [employer] BLINDSTITCH Clinical Notes Ethel York 2024 01:24:08 PM > referral sent along with labs Referral Priority Routine Medications Medication SIG (Take, Route, Frequency, Duration) Notes Start Date End Date Status Mirtazapine Active Melatonin Active Loratadine Active Topiramate Active Sertraline HCl Activ e Clobetasol Propionate 0.05 % 1 application Externally Once Nightlyx 4wks, then every other night x 4wks then 2x/wk x 4wks; Duration: 84 days 12/23/2024 Active cloNIDine Active Albuterol Active Depo-Provera 150 MG/ML 1 ml Intramuscula r Every 13-15 weeks; Duration: 91 days 12/04/2023 Active Terconazole 0.4 % 1 application at bed time Vaginal Once a day; Duration: 7 day(s) 12/09/2024 Active Social History Sex Assigned At : Social History Observation Description Sex Assigned At Female Section Notes: Aptima Aptima/ declines bw Aptima Problems Problem Type SNOMED Code ICD Code Onset Dates Problem Status W/U Status Risk Notes Problem Localized morphea (519949696) Lichen sclerosus et atrophicus (L90.0) Active confirmed Vital Signs Blood pressure diastolic 54 mm Hg 12/23/2024 Height 4'11 in 12/23/2024 Blood pressure systolic 98 mm Hg 12/23/2024 Weight 90 lbs 12/23/2024 BMI 18.18 kg/m2 12/23/2024 Encounters Encounter Location Date Provider Diagnosis [address] [id number] 03/04/2024 KENNEDY RAHMAN Encounter for surveillance of injectable contraceptive Z30.42 ; Encounter for screening for infections with a predominantly sexual mode of transmission Z11.3 ; Vaginal discharge N89.8 and Other problems related to lifestyle Z72.[address] [id number] 05/29/2024 KENNEDY RAHMAN Encounter for surveillance of injectable contraceptive Z30.42 ; Urinary frequency R35.0 and Acute candidiasis of vulva and vagina B37.[address] [id number] 09/11/2024 KENNEDY RAHMAN Encounter for surveillance of injectable contraceptive Z30.42 ; Encounter for screening for infections with a predominantly sexual mode of transmission Z11.3 ; Acute candidiasis of vulva and vagina B37.31 and Other problems related to lifestyle Z72.[address] [id number] 12/09/2024 KENNEDY RAHMAN Encounter for gynecological examination (general) (routine) without abnormal findings Z01.419 ; Encounter for surveillance of injectable contraceptive Z30.42 ; HPV Pap Screening Z11.51 ; Encounter for screening for other infectious and parasitic diseases Z11.8 ; Encounter for screening for infections with a predominantly sexual mode of transmission Z11.3 and Acute candidiasis of vulva and vagina B37.[address] [id number] 12/23/2024 KENNEDY RAHMAN Counseling, unspec ified Z71.9 ; Lichen sclerosus et atrophicus L90.0 ; Other problems related to lifestyle Z72.89 and Vaginal discharge N89.8 [facility] [address] [id number] 12/14/2024 KENNEDY RAHMAN [facility] [address] [id number] 01/06/2025 KENNEDYYAZMIN RAHMAN Assessments Encounter Date Diagnosis (ICD Code) Assessment Notes Treatment Notes Treatment Clinical Notes Section Notes 03/04/2024 Encounter for screening for infections with a predominantly sexual mode of transmission (ICD-10 - Z11.3) Discussed STI risks, screenings that are available through [facility] and safe sex. Clt aware of lab processing times and how to view results on portal and how positive results will be communicated Need 2 out of 3 Sections from A-C Section A) Problems (only need one from below) Section B) Data (need at least one of the following categories in this section) Category 1: (Choose three of the following): Order Unique tests Section C) Risk (any one of the following) Prescription drug management (this counts for the whole section) 03/04/2024 Encounter for surveillance of injectable contraceptive (ICD-10 - Z30.42) On time Depo today. No CI's to continue with Depo today. Calcium and Vit D supplements discussed Need 2 out of 3 Sections from A-C Section A) Problems (only need one from below) Section B) Data (need at least one of the following categories in this section) Category 1: (Choose three of the following): Order Unique tests Section C) Risk (any one of the following) Prescription drug management (this counts for the whole section) 05/29/2024 Encounter for surveillance of injectable contraceptive (ICD-10 - Z30.42) Depo administered in office without issue. Return in 13-15 weeks for repeat injection. Need 2 out of 3 Sections from A-C Section A) Problems (only need one from below) One acute or uncomplicated illness/injury Section B) Data (at least one of the following categories in this section) Category 1: (Choose 2 of the following): Order unique tests Section C) Risk Document low risk of morbidity/morta lity 05/29/2024 Urinary frequency (ICD-10 - R35.0) UA normal Need 2 out of 3 Sections from A-C Section A) Problems (only need one from below) One acute or uncomplicated illness/injury Section B) Data (at least one of the following categories in this section) Category 1: (Choose 2 of the following): Order unique tests Section C) Risk Document low risk of morbidity/morta lity 09/11/2024 Encounter for surveillance of injectable contraceptive (ICD-10 - Z30.42) Depo administered in office without issue. Return in 13-15 weeks for repeat injection. Need 2 out of 3 Sections from A-C Section A) Problems (only need one from below) Section B) Data (need at least one of the following categories in this section) Category 1: (Choose three of the following): Order Unique tests Section C) Risk (any one of the following) Prescription drug management (this counts for the whole section) 09/11/2024 Encounter for screening for infections with a predominantly sexual mode of transmission (ICD-10 - Z11.3) Discussed STI risks, screenings that are available through [facility] and safe sex. Clt aware of lab processing times and how to view results on portal and how positive results will be communicated Need 2 out of 3 Sections from A-C Section A) Problems (only need one from below) Section B) Data (need at least one of the following categories in this section) Category 1: (Choose three of the following): Order Unique tests Section C) Risk (any one of the following) Prescription drug management (this counts for the whole section) 12/09/2024 Encounter for gynecological examination (general) (routine) without abnormal findings (ICD-10 - Z01.419) Discussed routine screenings and self breast/chest awareness. Pap guidelines reviewed and pap collected. Will attempt to get pap records to confirm what abnormality was showing up on previous pap. Will call with fu plan once pap results reviewed 12/23/2024 Lichen sclerosus et atrophicus (ICD-10 - L90.0) Exam is suspecious for lichen sclerosis, which is a chronic skin condition which can cause irriation and itching. Will start on high potency steroids to be applied to affected area and send [employer] DEVELOPER referral for biopsy to confirm dx. Do a steroid taper: Once Nightlyx 4wks, then every other night x 4wks then 2x/wk x 4wks Also discussed caution with products being used. Want to rule out dermatiitis as a potential cause as well. Glad you were able to stop using daily panty liners. Avoid soaps in the genital area. Spent 20 minutes doing the following: Chart Prep Obtaining/revie wing history Performing medically necessary exam Counseling/Coor dination of Care Documenting the visit Educating the patient Ordering medication/test /procedures Established Patient: [id number] 20 Minutes 12/23/2024 Counseling, unspecified (ICD-10 - Z71.9) Spent 20 minutes doing the following: Chart Prep Obtaining/revie wing history Performing medically necessary exam Counseling/Coor dination of Care Documenting the visit Educating the patient Ordering medication/test /procedures Established Patient: [id number] 20 Minutes 12/23/2024 Other problems related to lifestyle (ICD-10 - Z72.89) Spent 20 minutes doing the following: Chart Prep Obtaining/revie wing history Performing medically necessary exam Counseling/Coor dination of Care Documenting the visit Educating the patient Ordering medication/test /procedures Established Patient: [id number] 20 Minutes 12/09/2024 HPV Pap Screening (ICD-10 - Z11.51) 09/11/2024 Acute candidiasis of vulva and vagina (ICD-10 - B37.31) Reviewed yeast findings and treatment options. Advised to resume sexual activity as it feels comfortable to client. Return to the clinic if symptoms not relieved by treatment. Need 2 out of 3 Sections from A-C Section A) Problems (only need one from below) Section B) Data (need at least one of the following categories in this section) Category 1: (Choose three of the following): Order Unique tests Section C) Risk (any one of the following) Prescription drug management (this counts for the whole section) 12/09/2024 Encounter for surveillance of injectable contraceptive (ICD-10 - Z30.42) Depo administered in office without issue. Return in 13-15 weeks for repeat injection. 05/29/2024 Acute candidiasis of vulva and vagina (ICD-10 - B37.31) Reviewed yeast findings and treatment options. Advised to resume sexual activity as it feels comfortable to client. Return to the clinic if symptoms not relieved by treatment. Need 2 out of 3 Sections from A-C Section A) Problems (only need one from below) One acute or uncomplicated illness/injury Section B) Data (at least one of the following categories in this section) Category 1: (Choose 2 of the following): Order unique tests Section C) Risk Document low risk of morbidity/morta lity 03/04/2024 Vaginal discharge (ICD-10 - N89.8) Reassured of normal wet mount findings. Will do STI screening to further evaluate. Offered to do vaginitis panel but clt opted to defer and monitor. Will RTC if continued concerns. Can do boric acid nightly for 5-7 days if feeling slight imbalance going on. Need 2 out of 3 Sections from A-C Section A) Problems (only need one from below) Section B) Data (need at least one of the following categories in this section) Category 1: (Choose three of the following): Order Unique tests Section C) Risk (any one of the following) Prescription drug management (this counts for the whole section) 03/04/2024 Other problems related to lifestyle (ICD-10 - Z72.89) Need 2 out of 3 Sections from A-C Section A) Problems (only need one from below) Section B) Data (need at least one of the following categories in this section) Category 1: (Choose three of the following): Order Unique tests Section C) Risk (any one of the following) Prescription drug management (this counts for the whole section) 09/11/2024 Other problems related to lifestyle (ICD-10 - Z72.89) Need 2 out of 3 Sections from A-C Section A) Problems (only need one from below) Section B) Data (need at least one of the following categories in this section) Category 1: (Choose three of the following): Order Unique tests Section C) Risk (any one of the following) Prescription drug management (this counts for the whole section) 12/09/2024 Encounter for screening for other infectious and parasitic diseases (ICD-10 - Z11.8) 12/23/2024 Vaginal discharge (ICD-10 - N89.8) Spent 20 minutes doing the following: Chart Prep Obtaining/revie wing history Performing medically necessary exam Counseling/Coor dination of Care Documenting the visit Educating the patient Ordering medication/test /procedures Established Patient: [id number] 20 Minutes 12/09/2024 Encounter for screening for infections with a predominantly sexual mode of transmission (ICD-10 - Z11.3) Discussed STI risks, screenings that are available through [facility] and safe sex. Clt aware of lab processing times and how to view results on portal and how positive results will be communicated 12/09/2024 Acute candidiasis of vulva and vagina (ICD-10 - B37.31) Recurrent vaginal infection concerns. Tx'd for yeast the past 3 visits. Hx of BV as well. Small amount of yeast on wet mount and areas of hypopigmentation on exam. Will send of vag plus to confirm dx and will rule out mycoplasma issues. Will start on 7 day tx of terconazole in the meantime. Can update tx plan as needed. Can discuss further partner tx for yeast if confirmed dx Suggested avoiding panty liners if possible or try switching to ensure cotton and unscented 03/04/2024 Other Need 2 out of 3 Sections from A-C Section A) Problems (only need one from below) Section B) Data (need at least one of the following categories in this section) Category 1: (Choose three of the following): Order Unique tests Section C) Risk (any one of the following) Prescription drug management (this counts for the whole section) Plan Of Treatment Next Appt Details Provider Name:KENNEDY RAHMAN, 04:00:00 PM, [address] [place] [address], [place], [place], [phone], Insurance Providers Payer Name Payer Address Payer Phone Subscriber Number Group Number Insured Name Patient Relationship to Insured Coverage Start Date Coverage End Date [employer] [address] [place] [address] [id number] Emilia Byrnes Self - patient is the insured Medications Administered Medication Instructions Date of Administration Dosage Notes Depo 150mg 08/28/2023 Injection give n by SARAH Helms student, RN Medroxyprogesterone Acetate 12/04/2023 150 mg Medroxyprogesterone Acetate 03/04/2024 150 mg Medroxyprogesterone Acetate 05/29/2024 150 mg Medroxyprogesterone Acetate 09/11/2024 150 mg Medroxyprogesterone Acetate 12/09/2024 150 mg Medical (General) History Medical History History ICD Code Asthma, inhaler (prn) CT 06/09 Depression/anxiety Weight concerns BV/CVV Abnormal pap Surgical History Surgery Date(Month/Year) eye surgery infancy nexplanon removal surgery 2020 Hospitalization History Reason Date(Month/Year) childbirth premature
--- OUTSIDE RECORDS SUMMARY | 2025-01-13 16:37 | XMS_ITS | Encounter Summary ---
Author Organization [facility] Address [address] [place] [phone] Phone Care Team Providers Care Turbine Blade Assembler Name Role Phone Yolis Jenkins MD Primary Care Provider [phone] Reason for Visit * Reason Comments Med Refill Encounter Details Date Type Department Care Team (Late st Contact Info) Description 09/13/2018 Refill [facility] [address] [place] [address] Alexandra Putnam MD [address] [place] [phone] Anxiety and depression Social History Tobacco Use Types Packs/Day Years [...] encounter Miscellaneous Notes * Telephone Encounter - Alexandra Putnam MD - 09/15/2018 10:44 AM EDT Note completed. * Telephone Encounter - Xena Alex MA - 09/14/2018 9:50 AM EDT Refill Fluoxetine. Med check and PE pending for September and October. Med check current. Will decline script as it was filled on 09/05 with one refill. Appears she stopped on 08/22 and had a f/u on 09/05 and restarted it. There was a new script on 09/05 Message to documented in this encounter Plan of Treatment Not on file documented as of this encounter Visit Diagnoses Diagnosis Anxiety and depression documented in this encounter Care Teams Turbine Blade Assembler Relationship Specialty Start Date End Date Yolis Jenkins MD [address] [place] [id number] PCP - General Pediatrics 11/24/18 09/09/22 documented as of this encounter
--- OUTSIDE RECORDS SUMMARY | 2025-01-13 16:37 | XMS_ITS | Encounter Summary ---
Author Organization [facility] Address [address] [place] [address] Phone Care Team Providers Care Campus Recruiting Internship Name Role Phone Yolis Jenkins MD Primary Care Provider [phone] Encounter Details Date Type Department Care Team (Late st Contact Info) Description 09/20/2016 Documentation [facility] [place] [facility] [address] [place] [address] Family Medicine, Physician [address] [place], [place] [address] Social History Tobacco Use Types Packs/Day Years [...] on filedocumented in this encounter Care Teams Campus Recruiting Internship Relationship Specialty Start Date End Date Yolis Jenkins MD [address] [place] [id number] PCP - General Pediatrics 11/24/18 09/09/22 documented as of this encounter
--- OUTSIDE RECORDS SUMMARY | 2025-01-13 16:37 | XMS_ITS | Encounter Summary ---
Author Organization [facility] Address [address] [place] [phone] Phone Care Team Providers Care Meat Specialist Name Role Phone Yolis Jenkins MD Primary Care Provider [phone] Reason for Visit * Reason Comments Med Refill Encounter Details Date Type Department Care Team (Late st Contact Info) Description 04/28/2017 Refill [facility] - [address] [address] Kathleen Pelayo MD Mild intermittent asthma without complication Social History [...] Encounter - Melvina Jett LPN - 04/29/2017 2:[address] Pelayo, please disreguard. Rx request sent to Dr. Hinds in your absence. EH documented in this encounter Plan of Treatment Not on file documented as of this encounter Visit Diagnoses Diagnosis Mild intermittent asthma without complication documented in this encounter Care Teams Meat Specialist Relationship Specialty Start Date End Date Yolis Jenkins MD [address] [place] [address] PCP - General Pediatrics 11/24/18 09/09/22 documented as of this encounter
--- OUTSIDE RECORDS SUMMARY | 2025-01-13 16:37 | XMS_ITS | Encounter Summary ---
Author Organization [facility] Address [address] [place] [address] Phone Care Team Providers Care Sap Abap Programmer Name Role Phone Yolis Jenkins MD Primary Care Provider [phone] Encounter Details Date Type Department Care Team (Late st Contact Info) Description 10/11/2009 Documentation [facility] [place] Family Medicine [address] [place] [address] Family Medicine, Physician [address] [place], [place] [id number] Social History Tobacco Use Types Packs/Day Years [...] on filedocumented in this encounter Care Teams Sap Abap Programmer Relationship Specialty Start Date End Date Yolis Jenkins MD [address] [place] [address] PCP - General Pediatrics 11/24/18 09/09/22 documented as of this encounter
--- OUTSIDE RECORDS SUMMARY | 2025-01-13 16:37 | XMS_ITS | Encounter Summary ---
Author Organization [facility] Address [address] [place] [address] Phone Care Team Providers Care Lead Slot Technician Name Role Phone Yolis Jenkins MD Primary Care Provider Encounter Details Date Type Department Care Team (Late st Contact Info) Description 10/11/2009 Documentation [facility] [place] Family Medicine [address] [place] [address] Family Medicine, Physician [address] [place], [place] [address] Social History Tobacco Use Types Packs/Day Years [...] on filedocumented in this encounter Care Teams Lead Slot Technician Relationship Specialty Start Date End Date Yolis Jenkins MD [address] [place] [address] PCP - General Pediatrics 11/24/18 09/09/22 documented as of this encounter
--- OUTSIDE RECORDS SUMMARY | 2025-01-13 16:37 | XMS_ITS | Encounter Summary ---
Author Organization [facility] Address [address] [place] [address] Phone Care Team Providers Care Automotive Service Management Teacher Name Role Phone Yolis Jenkins MD Primary Care Provider [phone] Encounter Details Date Type Department Care Team (Late st Contact Info) Description 05/25/2016 Documentation [facility] [place] [address] [place] [address] Family Medicine, Physician [address] [place], [place] [address] Social History Tobacco Use Types Packs/Day Years [...] on filedocumented in this encounter Care Teams Automotive Service Management Teacher Relationship Specialty Start Date End Date Yolis Jenkins MD [address] [place] [address] PCP - General Pediatrics 11/24/18 09/09/22 documented as of this encounter
--- OUTSIDE RECORDS SUMMARY | 2025-01-13 16:37 | XMS_ITS | Encounter Summary ---
Author Organization [facility] Address [address] [place] [phone] Phone Care Team Providers Care Dredge Deckhand Name Role Phone Yolis Jenkins MD Primary Care Provider [phone] Encounter Details Date Type Department Care Team (Late st Contact Info) Description 12/10/2011 Documentation [facility] [place] [address] [place] [address] Family Medicine, Physician [address] [place], [place] [address] Social History Tobacco Use Types Packs/Day Years [...] on filedocumented in this encounter Care Teams Dredge Deckhand Relationship Specialty Start Date End Date Yolis Jenkins MD [address] [place] [address] PCP - General Pediatrics 11/24/18 09/09/22 documented as of this encounter
--- OUTSIDE RECORDS SUMMARY | 2025-01-13 16:37 | XMS_ITS | Encounter Summary ---
Author Organization [facility] Address [address] [place] [address] Phone Care Team Providers Care Supervisor Spinning Name Role Phone Yolis Jenkins MD Primary Care Provider [phone] Encounter Details Date Type Department Care Team (Late st Contact Info) Description 03/12/2016 Documentation [facility] [place] [address] [place] [address] Family Medicine, Physician [address] [place], [place] [address] Social History Tobacco Use Types Packs/Day Years [...] on filedocumented in this encounter Care Teams Supervisor Spinning Relationship Specialty Start Date End Date Yolis Jenkins MD [address] [place] [address] PCP - General Pediatrics 11/24/18 09/09/22 documented as of this encounter
--- OUTSIDE RECORDS SUMMARY | 2025-01-13 16:37 | XMS_ITS | Encounter Summary ---
Author Organization [facility] Address [address] [place] [address] Phone Care Team Providers Care Window Machine Operator Name Role Phone Yolis Jenkins MD Primary Care Provider [phone] Encounter Details Date Type Department Care Team (Late st Contact Info) Description 01/19/2016 [place]ation [facility] [place] [address] [place] [address] Family Medicine, Physician [address] [place], [place] [address] Social History Tobacco Use Types Packs/Day Years [...] on filedocumented in this encounter Care Teams Window Machine Operator Relationship Specialty Start Date End Date Yolis Jenkins MD [address] [place] [address] PCP - General Pediatrics 11/24/18 09/09/22 documented as of this encounter
--- OUTSIDE RECORDS SUMMARY | 2025-01-13 16:37 | XMS_ITS | Encounter Summary ---
Author Organization [facility] Address [address] [place] [address] Phone Care Team Providers Care Real Estate Agent Name Role Phone Yolis Jenkins MD Primary Care Provider [phone] Reason for Visit * Reason Comments Med Refill Encounter Details Date Type Department Care Team ([facility] Contact Info) Description 07/12/2020 Refill [facility] [place] [address] [place] [address] Yolis Jenkins MD [address] [place] [address] Anxiety and depression Social History Tobacco Use [...] there wasn't enough money for food? No 11/22/2019 Stable Housing Answer Date Recorded Are you worried that in the next 2 months you may not have stable housing? No 11/22/2019 Transportation Concerns Answer Date Rec orded In the last 12 months, have you or your family ever had to go without healthcare because you didn't have a way to get there? No 11/22/2019 Hazards in Home Answer Date Recorded Think about the place you li ve. Do you have problems with any of the following? Pests (mice or roaches), mold, no/not working smoke detectors, water leaks, no window guards. No 2019 Financing Utilities Answer Date Recorde d In the last 12 months, has t he electric, gas, oil, or water company threatened to shut off your services in your home? No 11/22/2019 Safety at Home Answer Date Recorded Are you or your family worried about feeling saf e in your home? No 11/22/2019 Outside Support Answer Date Recorded Do you feel that you need mo re support from other people or programs to help you care for yourself or your family? No 11/22/2019 Understanding Health Concerns Answer Da te Recorded Do you need help understandi ng your or your child's healthcare needs (diagnosis, medications, plan, etc.)? No 11/22/2019 Financing Health Concerns Answer Date R ecorded In the last 12 months, was t here a time when your child needed to see a doctor or get medications or supplies but could not because of cost? No 11/22/2019 Missing School or Work Answer Date Chuy rded Did you or your child miss s chool or work because of a health problem that could have been avoided? No 11/22/2019 Comments No Sex and Gender Information Value [...] depression documented in this encounter Care Teams Real Estate Agent Relationship Specialty Start Date End Date Yolis Jenkins MD [address] [place] [address] PCP - General Pediatrics 11/24/18 09/09/22 documented as of this encounter
== END 2025-01-13 15:49 | disposition home or self-care (01) ==
LOC: HO.HWS 15:24
PROVIDERS: Visit Provider Obstetrics & Gynecology
DX: Z01.419 Encounter for gynecological examination (general) (routine) without abnormal findings (principal); N76.0 Acute vaginitis
CPT/HCPCS: 99213

== ENCOUNTER 2025-01-13 15:59 | Outpatient (REF) | payer BC, SELFPAY ==
[2025-01-14 04:48] LABS: Bacterial Vaginosis PCR NEGATIVE (Negative); Candida Group PCR NOT DETECTED (Not Detect); Candida glab krusei PCR NOT DETECTED (Not Detect); Trichomonas vaginalis PCR NOT DETECTED (Not Detect)
[2025-01-14 05:19] LABS: CT PCR NOT DETECTED (Not Detect.); NG PCR NOT DETECTED (Not Detect.)
== END 2025-01-13 16:00 | disposition home or self-care (01) ==
LOC: HO.LNP 15:59
PROVIDERS: Visit Provider Obstetrics & Gynecology
DX: N76.0 Acute vaginitis (principal); B96.89 Other specified bacterial agents as the cause of diseases classified elsewhere; Z12.4 Encounter for screening for malignant neoplasm of cervix; Z11.3 Encounter for screening for infections with a predominantly sexual mode of transmission; Z11.8 Encounter for screening for other infectious and parasitic diseases
CPT/HCPCS: 81515; 87491; 87591; 88175